=== PATIENT | female | born 1970 | race Caucasian/White ===

== ENCOUNTER → 2018-05-31 | Outpatient (CLI) | payer OTHER | LOC: M RAD 14:22 | DX: Z12.31 Encounter for screening mammogram for malignant neoplasm of breast (principal) | CPT/HCPCS: 77067 ==

== ENCOUNTER → 2018-07-05 | Outpatient (REF) | payer OTHER | LOC: M SFHCLERA 12:27 | DX: R30.0 Dysuria (principal) | CPT/HCPCS: 87186 ==

== ENCOUNTER → 2018-10-07 | Outpatient (REF) | payer OTHER | LOC: M SFHCLERA 17:40 | PROVIDERS: ATTEND Nurse Practitioner Family | DX: J02.9 Acute pharyngitis, unspecified (principal) ==

== ENCOUNTER → 2019-01-09 | Outpatient (REF) | payer OTHER ==
[2019-01-09 15:46] LABS: INR 0.94; PROTHROMBIN TIME 12.7 SECONDS (12.1-14.4)
[2019-01-09 15:47] LABS: PARTIAL THROMBOPLASTIN TIME 25.2 SECONDS (25.4-37.6)
== END ==
LOC: M LABDRAW1 14:48
PROVIDERS: ATTEND Physical Medicine & Rehabilitation
DX: Z01.818 Encounter for other preprocedural examination (principal)

== ENCOUNTER 2019-04-19 10:49 | Emergency (ER) | payer OTHER ==
[~2019-04-19] VITALS: Ht 160 cm; Wt 120.5 kg
[2019-04-19] MEDS ORDERED: CYMB1CAP5 PO (11:58)
[2019-04-19] MEDS ORDERED: [UNRECOGNIZED DRUG - CODE] XX (11:58)
[2019-04-19] MEDS ORDERED: AIMO70IN2 SQ (11:58)
[2019-04-19] MEDS ORDERED: TRAZ1TAB10 PO (11:58)
[2019-04-19] MEDS ORDERED: ZONI100C17 PO (11:58)
[2019-04-19] MEDS ORDERED: LOSA100T8 PO (11:58)
[2019-04-19] MEDS ORDERED: TIZA2TAB4 PO (11:58)
[2019-04-19] MEDS ORDERED: LIPI20TA PO (11:58)
[2019-04-19] MEDS ORDERED: SING10TA32 PO (11:58)
[2019-04-19] MEDS ORDERED: PROTPAK PO (11:58)
[2019-04-19] MEDS ORDERED: PROV100T25 PO (11:58)
[2019-04-19] MEDS ORDERED: LEXA1TAB2 PO (11:58)
[2019-04-19] MEDS ORDERED: MYRB50TA PO (11:58)
[2019-04-19] MEDS ORDERED: SYNT25TA PO (11:58)
[2019-04-19] MEDS ORDERED: OMEG10002 PO (11:58)
[2019-04-19] MEDS ORDERED: MAGN400C PO (11:58)
[2019-04-19] MEDS ORDERED: CLON0.5T17 PO (11:58)
[2019-04-19] MEDS ORDERED: METF500T13 PO (11:58)
[2019-04-19] MEDS ORDERED: CETI10CA13 PO (11:58)
[2019-04-19] MEDS ORDERED: CELE1CAP4 PO (11:58)
[2019-04-19] MEDS ORDERED: KETOROLAC 30 MG/ML VIAL (J1885) IV ONE (12:00)
[2019-04-19] MEDS ORDERED: KETOROLAC 30 MG/ML VIAL (J1885) As Ordered ONE (12:08)
[2019-04-19] MEDS ORDERED: LORazepam 2 MG/ML VIAL (J2060) IV STA (12:39)
--- NOTE | 2019-04-19 12:46 | REP ---
CT of the cervical spine without contrast Indication: Trauma. Comparison: None Technique: Axial CT of the cervical spine was performed without contrast. Bone reformatted images were provided in the axial, coronal and sagittal planes. Findings: There is no acute fracture or subluxation of the cervical spine. The craniocervical junction is intact. There is a cervical spondylosis, most notably at C5-C6 and C6-C7 with disc osteophyte complex formation. Vertebral body heights are maintained. The CT appearance of the spinal canal is within normal limits. The paraspinal soft tissues are within normal limits. There is no apical pneumothorax. Impression: No acute fracture or subluxation of the cervical spine. Cervical spondylosis. Electronically Signed by Lopez Wing MD 04/19/2019 12:37 P
--- NOTE | 2019-04-19 14:30 | REP ---
LEFT WRIST, FOUR VIEWS: There is no evidence of an acute fracture, dislocation or intrinsic bone disease. IMPRESSION: No fracture or dislocation. Electronically Signed by Hai Avery MD 04/19/2019 02:42 P
--- NOTE | 2019-04-19 14:31 | REP ---
LEFT SHOULDER, THREE VIEWS: There is no evidence of an acute fracture, dislocation or intrinsic bone disease. IMPRESSION: No fracture or dislocation. Electronically Signed by Hai Avery MD 04/19/2019 02:42 P
--- NOTE | 2019-04-19 14:32 | REP ---
PELVIS AND LEFT HIP: AP view of the pelvis and AP and frogleg views of the left hip are performed. There is no evidence of acute fracture, dislocation, or intrinsic bone disease. Metallic screws and rods are seen in the lower lumbar spine fusing L4 and L5. IMPRESSION: No acute fracture or dislocation. Electronically Signed by Hai Avery MD 04/19/2019 02:42 P
[2019-04-19 15:21] VITALS: BP 131/72
== END 2019-04-19 15:23 | disposition home or self-care (01) ==
LOC: EDBD 10:49 → M ED 10:49
DX: S40.012A Contusion of left shoulder, initial encounter (principal); S70.02XA Contusion of left hip, initial encounter; V53.5XXA Driver of pick-up truck or van injured in collision with car, pick-up truck or van in traffic accident, initial encounter; Y92.410 Unspecified street and highway as the place of occurrence of the external cause; M43.26 Fusion of spine, lumbar region; M47.812 Spondylosis without myelopathy or radiculopathy, cervical region; E03.9 Hypothyroidism, unspecified; K21.9 Gastro-esophageal reflux disease without esophagitis; Z79.84 Long term (current) use of oral hypoglycemic drugs; Z79.899 Other long term (current) drug therapy
CPT/HCPCS: 72125; 73030; 73110; 73502; 96374; 99284; J1885; J2060

== ENCOUNTER → 2019-08-31 | Outpatient (CLI) | payer OTHER ==
[~2019-08-31] MED LIST: AIMO70IN2 SQ; CELE1CAP4 PO; CETI10CA13 PO; CLON0.5T17 PO; CYMB1CAP5 PO; LEXA1TAB2 PO; LIPI20TA PO; LOSA100T8 PO; MAGN400C PO; METF500T13 PO; MYRB50TA PO; OMEG10002 PO; PROTPAK PO; PROV100T25 PO; SING10TA32 PO; SYNT25TA PO; TIZA2TAB4 PO; TRAZ1TAB10 PO; ZONI100C17 PO; [UNRECOGNIZED DRUG - CODE] XX
--- NOTE | 2019-08-31 16:27 | REPMRS ---
Patient History The patient states she had a clinical breast exam in February 2019. Family history of unknown cancer in father, unknown cancer in maternal grandmother. Taking unspecified hormones for 7 years. Digital Mammo Screening Bilat: August 31, 2019 - Exam #: [id number] Bilateral CC and MLO view(s) were taken. Technologist: Bruna Lindsey, Technologist Prior study comparison: May 31, 2018, bilateral digital mammo screening bilat performed at [facility]. January 06, 2016, bilateral digital woman screen mammo, performed at [facility]. FINDINGS: There are scattered fibroglandular densities. There is a needle biopsy marker clip again noted in the right breast. There has been no change in the appearance of the mammogram from the prior studies. There is a mild amount of scattered fibroglandular density which is fairly symmetric. There is no interval development of dominant mass, architectural distortion, or grouped microcalcification suggestive of malignancy. Assessment: BI-RADS/ACR category 2 mammogram. Benign Findings. Recommendation Routine screening mammogram of both breasts in 1 year (for women over age 40). This patient's Lifetime Breast Cancer Risk is estimated at 9.6 %. This mammogram was interpreted with the aid of an FDA-approved computer-aided dectection system. Electronically Signed By: Kin Pruitt MD 08/31/19 [id number]
== END ==
LOC: M RAD 13:14
PROVIDERS: ATTEND Family Medicine
DX: Z12.31 Encounter for screening mammogram for malignant neoplasm of breast (principal); Z80.8 Family history of malignant neoplasm of other organs or systems; Z92.29 Personal history of other drug therapy

== ENCOUNTER 2020-05-13 01:14 | Emergency (ER) | payer OTHER ==
[~2020-05-13] VITALS: Ht 160 cm; Wt 113.6 kg
[~2020-05-13 01:14] MED LIST changes: -TIZA2TAB4 PO; +TIZA2TAB6 PO
--- NOTE | 2020-05-13 03:45 | REPVR ---
PROCEDURE INFORMATION: Exam: CT Head Without Contrast Exam date and time: 05/13/2020 3:06 AM Age: 49 years old Clinical indication: Pain; Headache TECHNIQUE: Imaging protocol: Computed tomography of the head without contrast. Radiation optimization: All CT scans at this facility use at least one of these dose optimization techniques: automated exposure control; mA and/or kV adjustment per patient size (includes targeted exams where dose is matched to clinical indication); or iterative reconstruction. COMPARISON: No relevant prior studies available. FINDINGS: Brain: Normal. No hemorrhage. Unremarkable white matter. No mass effect. Cerebral ventricles: No ventriculomegaly. Bones/joints: Unremarkable. No acute fracture. Paranasal sinuses: Visualized sinuses are unremarkable. No fluid levels. Mastoid air cells: Visualized mastoid air cells are well aerated. Soft tissues: Unremarkable. IMPRESSION: No acute intracranial abnormality. Electronically signed by: Romulo Daniels On 05/13/2020 03:44:49 AM
[2020-05-13] MEDS ORDERED: METOCLOPRAMIDE INJ 10MG/2ML VIAL (J2765 PER 1) IV ONE ×2 (04:45→07:00)
[2020-05-13] MEDS ORDERED: NS 1,000 ML IV ONE (04:45)
[2020-05-13] MEDS ORDERED: diphenhydrAMINE 50MG/ML VIAL (J1200) IV ONE ×2 (04:45→07:00)
[2020-05-13] MEDS ORDERED: KETOROLAC 30 MG/ML 1ML VIAL IV ONE (04:45)
[2020-05-13] MEDS ORDERED: MAG SULF 1GM/100ML (MAG RUN) 1 GM in IV 1 EA IV ONE (07:00)
[2020-05-13 09:01] VITALS: BP 119/56
== END 2020-05-13 09:20 | disposition home or self-care (01) ==
LOC: M ED 01:14
DX: G43.909 Migraine, unspecified, not intractable, without status migrainosus (principal); Z79.84 Long term (current) use of oral hypoglycemic drugs; Z79.899 Other long term (current) drug therapy
CPT/HCPCS: 70450; 96361; 96365; 96375; 99285; J1200; J1885; J2765; J3475

== ENCOUNTER 2020-05-30 12:45 | Emergency (ER) | payer OTHER ==
[~2020-05-30] VITALS: Ht 165.1 cm; Wt 113.6 kg
[2020-05-30] MEDS ORDERED: NS 1,000 ML IV ONE (13:30)
[2020-05-30] MEDS ORDERED: MORPHINE 4 MG/ML 1ML VIAL/SYRINGE (J2270) IV ONE (13:30)
[2020-05-30 13:56] LABS: BASO % 0.3 % (0.0-1.0); EOS # 0.2 10^3/uL (0.0-0.5); EOS % 3.5 % (0.0-3.0); HEMATOCRIT 37.7 % (36.0-47.0); HEMOGLOBIN 12.4 g/dl (12.0-15.5); LYMPH # 2.5 10^3/uL (1.5-5.0); MEAN CORPUSCULAR HEMOGLOBIN 30.4 pg (27.0-33.0); MEAN CORPUSCULAR HGB CONC 32.9 g/dl (32.0-36.5); MEAN CORPUSCULAR VOLUME 92.4 fl (80.0-96.0); MONO # 0.4 10^3/uL (0.0-0.8); MONO % 6.6 % (0.0-5.0); NEUTROPHILS # 2.8 10^3/uL (1.5-8.5); NEUTROPHILS % 47.3 % (36.0-66.0); PLATELET COUNT, AUTOMATED 211 10^3/uL (150-450); RED BLOOD COUNT 4.08 10^6/uL (4.00-5.40); WHITE BLOOD COUNT 5.9 10^3/uL (4.0-10.0)
[2020-05-30 14:12] LABS: INR 0.91; PROTHROMBIN TIME 12.4 SECONDS (12.5-14.3)
[2020-05-30 14:13] LABS: PARTIAL THROMBOPLASTIN TIME 27.5 SECONDS (24.2-38.5)
[2020-05-30 14:25] LABS: HCG, SERUM QUALITATIVE NEGATIVE (NEGATIVE)
[2020-05-30] MEDS ORDERED: HYDROMORPHONE HCL 0.5 MG/ 0.5 ML SYRINGE (J1170 PER 1) IV ONE (14:30)
[2020-05-30 14:32] LABS: ALBUMIN 3.5 GM/DL (3.2-5.2); ALT/SGPT 67 U/L (12-78); BILIRUBIN,DIRECT 0.2 MG/DL (0.0-0.2); BILIRUBIN,TOTAL 0.5 MG/DL (0.2-1.0); BLOOD UREA NITROGEN 12 MG/DL (7-18); CALCIUM LEVEL 8.9 MG/DL (8.5-10.1); CARBON DIOXIDE LEVEL 29 MEQ/L (21-32); CHLORIDE LEVEL 105 MEQ/L (98-107); CK-MB VALUE MASS 1.8 NG/ML (<3.6); CPK CREATINE PHOSPHOKINASE 191 U/L (26-192); CREATININE FOR GFR 0.91 MG/DL (0.55-1.30); FREE T4 1.16 NG/DL (0.76-1.46); GLOMERULAR FILTRATION RATE > 60.0 (>51); GLUCOSE, FASTING 103 MG/DL (70-100); MB/CK RELATIVE INDEX 0.94 (< OR =4); POTASSIUM SERUM 3.6 MEQ/L (3.5-5.1); SODIUM LEVEL 141 MEQ/L (136-145); TROPONIN I < 0.02 NG/ML (< 0.10)
[2020-05-30] MEDS ORDERED: ISOVUE-370 76% 100ML VIAL As Ordered ONE (14:39)
--- NOTE | 2020-05-30 16:54 | REP ---
INDICATION: trauma. COMPARISON: 05/13/2020. TECHNIQUE: CT BRAIN PERFORMED IN THE AXIAL PLANE. CORONAL RECONSTRUCTION IMAGES ARE PERFORMED. FINDINGS: THE VENTRICLES ARE NORMAL IN SIZE AND POSITION. THERE IS NO MIDLINE SHIFT OR MASS EFFECT. AVERY-WHITE DIFFERENTIATION IS WELL MAINTAINED. THERE IS NO ACUTE INTRACRANIAL HEMORRHAGE OR EXTRA-AXIAL FLUID COLLECTION. BONE WINDOW EXAMINATION IS UNREMARKABLE. VISUALIZED MASTOID AIR CELLS AND PARANASAL SINUSES ARE CLEAR. There is a 1.2 cm cyst or polyp in the floor of the right maxillary sinus, which is partially visualized. IMPRESSION: NEGATIVE NONCONTRAST CT BRAIN. <Electronically signed by Hai Avery > 05/30/20 [id number]
--- NOTE | 2020-05-30 16:57 | REP ---
INDICATION: trauma. COMPARISON: 05/13/2020 TECHNIQUE: CT cervical spine performed in the axial plane, with sagittal and coronal reconstruction images performed. FINDINGS: There is no acute compression fracture or malalignment. There is no prevertebral soft tissue swelling. There is mild spurring and disc space narrowing at the C5-6 and C6-7 levels.. There is normal cervical lordosis. There is no abnormal density in the spinal canal. IMPRESSION: No evidence of acute fracture or dislocation. <Electronically signed by Hai Avery > 05/30/20 [id number]
--- NOTE | 2020-05-30 16:59 | REP ---
INDICATION: trauma. COMPARISON: None. TECHNIQUE: Axial noncontrast images through the thoracic spine with coronal and sagittal reformations. This CT examination was performed using the following dose reduction techniques: Automated exposure control, adjustment of mA and/or kv according to the patient's size, and use of iterative reconstruction technique. FINDINGS: Alignment and kyphosis maintained. Vertebral bodies are intact and demonstrate minimal generalized age-related changes. Disc spaces are within normal limits for age. Posterior elements and spinous processes are intact. There is no evidence for acute fracture/compression injury or subluxation. Spinal canal is patent. Paravertebral soft tissues are normal. IMPRESSION: Generalized age-related changes. No evidence for acute thoracic spine trauma/injury. <Electronically signed by Placido Osei > 05/30/20 [id number]
[2020-05-30 17:00] VITALS: BP 130/64
--- NOTE | 2020-05-30 17:01 | REP ---
INDICATION: trauma COMPARISON: None TECHNIQUE: Axial contrast enhanced images from the thoracic inlet to the upper abdomen with coronal and sagittal reformations using 75 ml Isovue 370 intravenous contrast material. This CT examination was performed using the following dose reduction techniques: Automated exposure control, adjustment of mA and/or kv according to the patient's size, and use of iterative reconstruction technique. FINDINGS: Bilateral lung laboy are well aerated and clear. No consolidation/contusion, pleural effusion, or pneumothorax. Tracheobronchial tree is patent. No axillary, hilar, or mediastinal adenopathy. Mediastinum demonstrates normal thoracic aorta, pulmonary vasculature, and heart/pericardium without evidence for mediastinal trauma. Surrounding musculoskeletal structures appear intact and without evidence for acute injury. IMPRESSION: Normal contrast-enhanced chest CT. No acute mediastinal or pleuroparenchymal process. No evidence for acute trauma/injury. <Electronically signed by Placido Osei > 05/30/20 [id number]
--- NOTE | 2020-05-30 17:05 | REP ---
INDICATION: trauma. COMPARISON: None TECHNIQUE: Axial contrast-enhanced images from the lung bases to the pubic symphysis using 100 cc Isovue 370 intravenous contrast material. Coronal and sagittal reformations obtained. This CT examination was performed using the following dose reduction techniques: Automated exposure control, adjustment of mA and/or kv according to the patient's size, and the use of iterative reconstruction technique. FINDINGS: Fatty infiltration to the liver noted. Spleen, pancreas, bilateral adrenal glands and kidneys are normal. There is no evidence for solid organ injury. Prior cholecystectomy. The enteric system including stomach, small, and large bowel appears normal. No evidence for obstruction or acute inflammatory process. Normal terminal ileum and appendix are identified in the right lower quadrant. Pelvis demonstrates normal bladder and evidence for prior hysterectomy with 9 cm right adnexal cyst. No ascites. No free air. No intraperitoneal or retroperitoneal adenopathy. Abdominal aorta and vasculature appear normal. Musculoskeletal structures are intact and without acute injury. There is evidence for prior lumbar fixation and laminectomy. IMPRESSION: No acute abdominopelvic trauma/injury. Prior hysterectomy with 9 cm right adnexal cyst. Prior cholecystectomy and lumbar fixation/laminectomy. No ascites. No free air. No adenopathy. No focal inflammatory stranding. <Electronically signed by Placido Osei > 05/30/20 [id number]
--- NOTE | 2020-05-30 17:09 | REP ---
INDICATION: trauma. COMPARISON: None. TECHNIQUE: Axial noncontrast images through the mid to distal pelvis with coronal and sagittal reformations through the right and left hip. This CT examination was performed using the following dose reduction techniques: Automated exposure control, adjustment of mA and/or kv according to the patient's size, and use of iterative reconstruction technique. FINDINGS: Osseous structures are intact and essentially symmetric. There is no evidence for visualized pelvic or be hip fracture. Visualized pelvic structures are grossly unremarkable. Evidence for prior hysterectomy noted. IMPRESSION: No evidence for hip fracture or trauma to the the visualized pelvis. <Electronically signed by Placido Osei > 05/30/20 [id number]
--- NOTE | 2020-05-30 17:10 | REP ---
INDICATION: trauma. COMPARISON: None. TECHNIQUE: Axial noncontrast images of the lumbosacral spine from mid T12 through mid sacrum with coronal and sagittal reformations. This CT examination was performed using the following dose reduction techniques: Automated exposure control, adjustment of mA and/or kv according to the patient's size, and use of iterative reconstruction technique. FINDINGS: Alignment and lordosis maintained. Evidence for prior fixation and laminectomy at the and L5 levels. Vertebral bodies are otherwise intact. Posterior elements and spinous processes are otherwise intact. There is no evidence for acute fracture/compression injury or subluxation. The spinal canal is patent. The paravertebral soft tissues are normal. IMPRESSION: Prior laminectomy and fixation at L4 and L5. No evidence for acute fracture/compression injury or subluxation. <Electronically signed by Placido Osei > 05/30/20 [id number]
--- NOTE | 2020-05-30 17:53 | REP ---
INDICATION: trauma COMPARISON: None. TECHNIQUE: AP and cross-table lateral views of the right and left knee. FINDINGS: Symmetric age-related changes are noted. No acute fracture or dislocation. Mild prepatellar swelling cannot be excluded. IMPRESSION: No obvious acute fracture or dislocation. <Electronically signed by Placido Osei > 05/30/20 [id number]
--- NOTE | 2020-05-30 20:35 | ECGEPIP ---
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
== END 2020-05-30 19:49 | disposition home or self-care (01) ==
LOC: M ED 12:45 → EDBD 12:45 → M ED 19:49
DX: S16.1XXA Strain of muscle, fascia and tendon at neck level, initial encounter (principal); S30.0XXA Contusion of lower back and pelvis, initial encounter; S70.01XA Contusion of right hip, initial encounter; S80.01XA Contusion of right knee, initial encounter; S80.02XA Contusion of left knee, initial encounter; W10.8XXA Fall (on) (from) other stairs and steps, initial encounter; Y92.9 Unspecified place or not applicable; Y93.9 Activity, unspecified; Y99.9 Unspecified external cause status; U07.1 COVID-19; R73.03 Prediabetes; M79.7 Fibromyalgia; E03.9 Hypothyroidism, unspecified; F43.10 Post-traumatic stress disorder, unspecified; Z79.899 Other long term (current) drug therapy; Z79.84 Long term (current) use of oral hypoglycemic drugs; Z98.890 Other specified postprocedural states
CPT/HCPCS: 70450; 71260; 72125; 72128; 72131; 73560; 73700; 74177; 80048; 80076; 82550; 82553; 84439; 84443; 84484; 84703; 85025; 85610; 85730; 93005; 93041; 94760; 96361; 96374; 96375; 99285; J1170; J2270; Q9967

== ENCOUNTER 2020-08-26 09:11 | Inpatient (IN) | payer OTHER ==
[~2020-08-26] VITALS: Ht 160 cm; Wt 118.2 kg
[~2020-08-26 09:11] MED LIST changes: +TIZA1TAB12 PO; -TIZA2TAB6 PO
--- OUTSIDE RECORDS SUMMARY | 2020-08-26 09:23 | CCD | Continuity of Care Document ---
Author Author Leda SCOTT M.D. 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 Onset: 06/05/2018 Chronic tension-type headache Cecilia Chairez M.D. Onset: Neck pain Cecilia Chairez M.D. Onset: 06/05/2018 Cervico-occipital neuralgia Cecilia Chairez M.D. Onset: 06/05 Benign intracranial hypertension Cecilia Chairez M.D. Onset: 06/05/2018 Nonpyogenic thrombosis of intracranial venous sinus Cecilia henry M.D. Onset: 06/05/2018 Visual disturbance Cecilia Chairez M.D. Onset: 06/05/2018 Low back pain Cecilia Chairez M.D. Onset: 08/15/2018 Spondylolysis of cervical spine Cecilia Chairez M.D. Onset: 0 08/15/2018 Spondylolysis Cecilia Chairez M.D. Onset: 08/15/2018 Bilateral carpal tunnel syndrome Cecilia Chairez M.D. Onset: 10/13/2018 Lesion of ulnar nerve Cecilia Chairez M.D. Onset: 10/13/2018 Chronic intractable migraine without aura Lilia Syed Onset: 05/15/2020 Cervico-occipital neuralgia Corie Aden P.A.-C. Onset: 05/15/2020 Fibromyalgia Corie Aden P.A.-C. Onset: 05/15/20 20 Neck pain Corie Aden P.A.-C. Onset: 05/15/20 20 Low back pain Corie Aden P.A.-C. Onset: 05/15/20 20 Visual disturbance Corie Aden P.A.-C. Onset: 05/15/20 20 Obstructive sleep apnea syndrome Corie Aden P.A.-C. On set: 05/15/2020 Social History Type Date Description Comments Sex Unknown Tobacco Use Start: Unknown Patient has never smoked Allergies, Adverse Reactions, Alerts Active Allergies Reaction Severity Comments Date Topamax severe paresthesias 03/09/20 19 Tizanidine dry mouth 11/28/2019 Inactive Allergies NKDA 06/05/2018 Medications Active Medications SIG Qnty Indications Ordering Provide r Date Pregabalin 100mg Capsules 1 by mouth three times a day 90pelon Chairez M.D. 05/29/2020 Methocarbamol 750mg Tablets 1 po tid G43.719 Jett Scott M.D. 05/14/2020 Relpax 40mg Tablets 1 by mouth as needed migraine, may repeat once in 2 hours 9tagary Chairez M.D. 05/08/2020 Medrol 4mg Tablets take 6 pills for one day, and then reduce by one pill each day till completed. 21tagary Chairez M.D. 11/20/2019 Aimovig 140mg/ml Solution Auto-Inj ect 1 inject 140mg/ml sc once a month 3ml Cecilia Chairez M.D. 01/16/2019 Zonisamide 100mg Capsules 3 by mouth qhs. 90pelon Chairez M.D. 07/06/2018 Abilify 2mg Tablets 1 by mouth every night at bedtime Lorena Dwyer M.D. Klonopin 1mg Tablets 1 by mouth twice a day mdd 2 Cecilia Chairez M.D. History Medications Pregabalin 50mg Capsules 1 po bid 60pelon Chairez M.D. 05/08/2020 - 05/29/2020 Alprazolam 0.25mg Tablets 1 by mouth half an hour before the MRI, may repeat once as needed 2tagary Chairez M.D. 05/08/2020 - 05/14/2020 Gabapentin 300mg Capsules 1 by mouth tid. 90Valentina Hobbs.D. 03/14/2020 - 020 Immunizations Description No Information Available Vital Signs Date Vital Result Comment 05/14/2020 5:44am BP Systolic 130 mmHg BP Diastolic 100 mmHg Heart Rate 68 /min Respiratory Rate 20 /min 10/25/2019 6:31am BP Systolic 110 mmHg BP Diastolic 80 mmHg Heart Rate 76 /min Respiratory Rate 16 /min Results Description No Information Available Procedures Date Code Description Status 07/15/2020 82858 Injection For Nerve Block, Other Peripheral Nerve Or Branch Completed 07/15/2020 35817 Injection For Nerve Block, Great er Occipital Nerve Completed 07/15/2020 60713 Inj, Anesth Agent, Trigeminal Co mpleted 05/10/2020 55146 MRI Brain W/O Contrast Completed 05/10/2020 88818 MRI Brain W/O Contrast Completed 04/28/2020 73987 Injection For Nerve Block, Other Peripheral Nerve Or Branch Completed 04/28/2020 06544 Injection For Nerve Block, Great er Occipital Nerve Completed 04/28/2020 99079 Inj, Anesth Agent, Trigeminal Co mpleted 03/24/2020 63907 Injection For Nerve Block, Other Peripheral Nerve Or Branch Completed 03/24/2020 92643 Injection For Nerve Block, Great er Occipital Nerve Completed 03/24/2020 35524 Inj, Anesth Agent, Trigeminal Co mpleted 01/30/2020 16935 Injection For Nerve Block, Other Peripheral Nerve Or Branch Completed 01/30/2020 62436 Injection For Nerve Block, Great er Occipital Nerve Completed 01/30/2020 64580 Inj, Anesth Agent, Trigeminal Co mpleted Medical Devices Description No Information Available Encounters Type Date Location Provider Dx Diagnosis Office Visit 06/18/2020 8:00a [facility] [place] Corie cohn, P.A.-C. M79.7 Fibromyalgia M54.81 Occipital neuralgia G43.719 Chronic migraine w/o aura, i ntractable, w/o stat migr H53.8 Other visual disturbances M54.2 Cervicalgia M54.5 Low back pain G60.9 Hereditary and idiopathic ne uropathy, unspecified G47.33 Obstructive sleep apnea (teressa lt) (pediatric) Office Visit 05/14/2020 2:00p Main office - [place] Corie cohn P.A.-C. G43.719 Chronic migraine w/o aura, intractable, w/o stat migr M54.81 Occipital neuralgia M79.7 Fibromyalgia M54.2 Cervicalgia M54.5 Low back pain G47.33 Obstructive sleep apnea (teressa lt) (pediatric) G60.9 Hereditary and idiopathic ne uropathy, unspecified H53.8 Other visual disturbances Office Visit 01/28/2020 11:15a Main office - [place] Ruel UriasA.-CJennifer M79.7 Fibromyalgia M54.5 Low back pain G60.9 Hereditary and idiopathic ne uropathy, unspecified M54.2 Cervicalgia G56.03 Carpal tunnel syndrome, bila teral upper limbs G56.22 Lesion of ulnar nerve, left upper limb G43.719 Chronic migraine w/o aura, i ntractable, w/o stat migr M54.81 Occipital neuralgia G47.33 Obstructive sleep apnea (teressa lt) (pediatric) Assessments Date Code Description Provider 07/15/2020 M54.81 Occipital neuralgia Jett murry M.D. 07/15/2020 G50.0 Trigeminal neuralgia Jett garcia M.D. 06/18/2020 M79.7 Fibromyalgia Lilia Syed.A.-C. 06/18/2020 M54.81 Occipital neuralgia Lilia Urias.A.-C. 06/18/2020 G43.719 Chronic migraine wit hout aura, intractable, without status migrainosus Lilia Syed.A.-C. 06/18/2020 H53.8 Other visual disturbances Lilia Burnham.A.-C. 06/18/2020 M54.2 Cervicalgia Corie Aden P.A.-C. 06/18/2020 M54.5 Low back pain Corie Aden P.A.-C. 06/18/2020 G60.9 Hereditary and idiopathic neurop athy, unspecified Corie Aden P.A.-C. 06/18/2020 G47.33 Obstructive sleep apnea (adult) (pediatric) Lilia Syed.A.-C. 05/14/2020 G43.719 Chronic migraine wit hout aura, intractable, without status migrainosus Lilia Syed.A.-C. 05/14/2020 M54.81 Occipital neuralgia Lilia Urias.A.-C. 05/14/2020 M79.7 Fibromyalgia Corie Aden P.A.-C. 05/14/2020 M54.2 Cervicalgia Corie Aden P.A.-C. 05/14/2020 M54.5 Low back pain Corie Aden, P.A.-C. 05/14/2020 G47.33 Obstructive sleep apnea (adult) (pediatric) Lilia Syed.A.-C. 05/14/2020 G60.9 Hereditary and idiopathic neurop athy, unspecified Corie Aden P.A.-C. 05/14/2020 H53.8 Other visual disturbances Lilia Burnham.A.-C. 05/10/2020 H53.8 Other visual disturbances Lorena Dwyer M.D. 05/10/2020 H53.8 Other visual disturbances MRI 05/10/2020 R51.9 Headache, unspecified Lorena Latdank castro MJenniferD. 05/10/2020 R51.9 Headache, unspecified MRI 05/01/2020 G43.719 Chronic migraine without aura, i ntractable, without status m Lilia Syed.A.-C. 05/01/2020 M54.81 Occipital neuralgia Lilia Urias.A.-C. 05/01/2020 M54.2 Cervicalgia Corie Aden P.A.-C. 05/01/2020 M79.7 Fibromyalgia Corie Aden P.A.-C. 05/01/2020 M54.5 Low back pain Corie Aden P.A.-C. 05/01/2020 G60.9 Hereditary and idiopathic neurop athy, unspecified Croie Aden P.A.-C. 05/01/2020 G56.03 Carpal tunnel syndrome, bilatera l upper limbs Corie Aden P.A.-C. 05/01/2020 G56.22 Lesion of ulnar nerve, left uppe r limb Lilia Syed.A.-C. 04/28/2020 M54.81 Occipital neuralgia Jett Ivette murry M.D. 04/28/2020 G50.0 Trigeminal neuralgia Jett Jimenezevelia garcia M.D. 03/24/2020 M54.81 Occipital neuralgia Jett Jimeneztravis murry M.D. 03/24/2020 G50.0 Trigeminal neuralgia Jett Jimenezevelia garcia M.D. 01/30/2020 M54.81 Occipital neuralgia Jett Garciamarc murry M.D. 01/30/2020 G50.0 Trigeminal neuralgia Jett Jimenezevelia garcia M.D. 01/28/2020 M79.7 Fibromyalgia Lilia Syed.A.-C. 01/28/2020 M54.5 Low back pain Ruel SyedA.-C. 01/28/2020 G60.9 Hereditary and idiopathic neurop athy, unspecified Lilia Syed.A.-C. 01/28/2020 M54.2 Cervicalgia Lilia Syed.A.-C. 01/28/2020 G56.03 Carpal tunnel syndrome, bilatera l upper limbs Lilia Syed.A.-C. 01/28/2020 G56.22 Lesion of ulnar nerve, left uppe r limb Lilia Syed.A.-C. 01/28/2020 G43.719 Chronic migraine without aura, i ntractable, without status m Lilia Syed.A.-C. 01/28/2020 M54.81 Occipital neuralgia Corie cohn P.A.-C. 01/28/2020 G47.33 Obstructive sleep apnea (adult) (pediatric) Agnieszka SyedCJennifer Plan of Treatment Future Appointment(s):* 09/02/2020 3:15 pm - Jett Scott M.D. at Main office [facility] * 08/25/2020 9:30 am - Corie Aden P.A.-C. at [facility] 06/18/2020 - Corie Aden P.A.-C.* M79.7 Fibromyalgia* Comments:* Improved. Continue current medications. * M54.81 Occipital neuralgia* Comments:* She will have her next set of injections in July. Recent injections were cancelled due to a positive COVID test. * G43.719 Chronic migraine without aura, intractable, without status migrainosus * Comments:* Improved. Continue current medications. * H53.8 Other visual disturbances* Comments:* She is awaiting an appt with ophthalmology. * M54.2 Cervicalgia* Comments:* Stable. Follow up with orthopedics. * M54.5 Low back pain* Comments:* Stable. * G60.9 Hereditary and idiopathic neuropathy, unspecified* Comments:* Continue Lyrica. * G47.33 Obstructive sleep apnea (adult) (pediatric)* Comments:* Follow up with PCP. * Follow up:* 2 months Functional Status Description No Information Available Mental Status Description No Information Available Referrals Refer to Reason for Referral Status Appt Date Lorena Dwyer M.D. Created [facility] [address] [place] [address] [phone] Jett Scott M.D. Created 0 [address] [place] [id number] [phone]
--- OUTSIDE RECORDS SUMMARY | 2020-08-26 09:23 | CCD | Continuity of Care Document ---
Author Author Leda ADEN P.A.-C. Organization Unknown Address [address] [place] [address] Phone [phone] Care Team Providers [facility] Director Name Role Phone [place] [employer] Unavailable Problems Active Problems Provider Date [...] 750mg Tablets 1 po tid G43.719 Jett Wilson M.D. 05/14/2020 Relpax 40mg Tablets 1 by mouth as needed migraine, may repeat once in 2 hours 9tanisha Chairez M.D. 05/08/2020 Medrol 4mg Tablets take [...] Gabapentin 300mg Capsules 1 by mouth tid. 90pelon Chairez M.D. 03/14/2020 - 020 Immunizations Description No Information Available Vital Signs Date Vital Result Comment 05/14/2020 5:44am BP Systolic 130 mmHg BP Diastolic 100 mmHg Heart Rate 68 /min Respiratory Rate 20 /min 10/25/2019 6:31am BP Systolic 110 mmHg BP Diastolic 80 mmHg Heart Rate 76 /min Respiratory Rate 16 /min Results Description No Information Available Procedures Date Code Description Status 05/10/2020 84747 MRI Brain W/O Contrast Completed 05/10/2020 51087 MRI Brain W/O Contrast Completed 04/28/2020 36462 Injection For Nerve Block, Other Peripheral Nerve Or Branch Completed 04/28/2020 13587 Injection For Nerve Block, Great er Occipital Nerve Completed 04/28/2020 39854 Inj, Anesth Agent, Trigeminal Co mpleted 03/24/2020 05074 Injection For Nerve Block, Other Peripheral Nerve Or Branch Completed 03/24/2020 46094 Injection For Nerve Block, Great er Occipital Nerve Completed 03/24/2020 67177 Inj, Anesth Agent, Trigeminal Co mpleted 01/30/2020 02147 Inj, Anesth Agent, Trigeminal Co mpleted 01/30/2020 66658 Injection For Nerve Block, Great er Occipital Nerve Completed 01/30/2020 37978 Injection For Nerve Block, Other Peripheral Nerve Or Branch Completed 12/26/2019 71466 Nerve Conduction 11-12 Studies C ompleted 12/26/2019 55354 Needle Electromyography Complete , Five Or More Muscles Studied Completed 12/26/2019 01556 Needle Electromyography Complete , Five Or More Muscles Studied Completed 12/24/2019 55457 Injection For Nerve Block, Other Peripheral Nerve Or Branch Completed 12/24/2019 01266 Injection For Nerve Block, Great er Occipital Nerve Completed 12/24/2019 69144 Inj, Anesth Agent, Trigeminal Co mpleted Medical Devices Description No Information Available Encounters Type Date Location Provider Dx Diagnosis Office Visit 05/14/2020 2:00p Main office - [place] Corie cohn PJenniferAJennifer-Carole G43.719 Chronic migraine w/o aura, intractable, w/o stat migr M54.81 Occipital neuralgia M79.7 Fibromyalgia M54.2 Cervicalgia M54.5 Low back pain G47.33 Obstructive sleep apnea (teressa lt) (pediatric) G60.9 Hereditary and idiopathic ne uropathy, unspecified H53.8 Other visual disturbances Office Visit 01/28/2020 11:15a Main office - [place] Lilia Urias.A.-C. M79.7 Fibromyalgia M54.5 Low back pain G60.9 Hereditary and idiopathic ne uropathy, unspecified M54.2 Cervicalgia G56.03 Carpal tunnel syndrome, bila teral upper limbs G56.22 Lesion of ulnar nerve, left upper limb G43.719 Chronic migraine w/o aura, i ntractable, w/o stat migr M54.81 Occipital neuralgia G47.33 Obstructive sleep apnea (teressa lt) (pediatric) Assessments Date Code Description Provider 06/18/2020 M79.7 Fibromyalgia Corie Aden P.A.-C. 06/18/2020 M54.81 Occipital neuralgia Lilia Urias.A.-C. 06/18/2020 G43.719 Chronic migraine wit hout aura, intractable, without status migrainosus Lilia Syed.A.-C. 06/18/2020 H53.8 Other visual disturbances Corie Aden P.A.-C. 06/18/2020 M54.2 Cervicalgia Corie Aden P.A.-C. 06/18/2020 M54.5 Low back pain Corie Aden P.A.-C. 06/18/2020 G60.9 Hereditary and idiopathic neurop athy, unspecified Corie Aden P.A.-C. 06/18/2020 G47.33 Obstructive sleep apnea (adult) (pediatric) Corie Aden P.A.-C. 05/14/2020 G43.719 Chronic migraine wit hout aura, intractable, without status migrainosus Corie Aden P.A.-C. 05/14/2020 M54.81 Occipital neuralgia Corie cohn P.A.-C. 05/14/2020 M79.7 Fibromyalgia Corie Aden P.A.-C. 05/14/2020 M54.2 Cervicalgia Corie Aden P.A.-C. 05/14/2020 M54.5 Low back pain Corie Aden P.A.-C. 05/14/2020 G47.33 Obstructive sleep apnea (adult) (pediatric) Corie Aden P.A.-C. 05/14/2020 G60.9 Hereditary and idiopathic neurop athy, unspecified Corie Aden P.A.-C. 05/14/2020 H53.8 Other visual disturbances Corie Aden P.A.-C. 05/10/2020 H53.8 Other visual disturbances Lorena Dwyer M.D. 05/10/2020 H53.8 Other visual disturbances MRI 05/10/2020 R51.9 Headache, unspecified Lorena Lati fKumarDJennifer 05/10/2020 R51.9 Headache, unspecified MRI 05/01/2020 G43.719 Chronic migraine without aura, i ntractable, without status m Lilia Syed.A.-C. 05/01/2020 M54.81 Occipital neuralgia Corie cohn P.A.-C. 05/01/2020 M54.2 Cervicalgia Corie Aden P.A.-C. 05/01/2020 M79.7 Fibromyalgia Corie Aden P.A.-C. 05/01/2020 M54.5 Low back pain Corie Aden P.A.-C. 05/01/2020 G60.9 Hereditary and idiopathic neurop athy, unspecified Corie Aden P.A.-C. 05/01/2020 G56.03 Carpal tunnel syndrome, bilatera l upper limbs Corie Aden P.A.-C. 05/01/2020 G56.22 Lesion of ulnar nerve, left uppe r limb Corie Aden P.A.-C. 04/28/2020 M54.81 Occipital neuralgia Jett murry M.D. 04/28/2020 G50.0 Trigeminal neuralgia Jett garcia M.D. 03/24/2020 M54.81 Occipital neuralgia Jett murry M.D. 03/24/2020 G50.0 Trigeminal neuralgia Jett garcia M.D. 01/30/2020 M54.81 Occipital neuralgia Jett murry M.D. 01/30/2020 G50.0 Trigeminal neuralgia Jett garcia M.D. 01/28/2020 M79.7 Fibromyalgia Corie Aden P.A.-C. 01/28/2020 M54.5 Low back pain Corie Aden P.A.-C. 01/28/2020 G60.9 Hereditary and idiopathic neurop athy, unspecified Corie Aden P.A.-C. 01/28/2020 M54.2 Cervicalgia Corie Aden P.A.-C. 01/28/2020 G56.03 Carpal tunnel syndrome, bilatera l upper limbs Corie Aden P.A.-C. 01/28/2020 G56.22 Lesion of ulnar nerve, left uppe r limb Corie Aden P.A.-C. 01/28/2020 G43.719 Chronic migraine without aura, i ntractable, without status m Corie Aden P.A.-C. 01/28/2020 M54.81 Occipital neuralgia Corie cohn P.A.-C. 01/28/2020 G47.33 Obstructive sleep apnea (adult) (pediatric) Corie Aden P.A.-C. 12/26/2019 M54.5 Low back pain Jett Wilson M.D. 12/26/2019 R20.2 Paresthesia of skin Jett murry M.D. 12/26/2019 G60.9 Hereditary and idiopathic neurop athy, unspecified Jett Wilson M.D. 12/24/2019 M54.81 Occipital neuralgia Jett murry M.D. 12/24/2019 G50.0 Trigeminal neuralgia Jett garcia M.D. Plan of Treatment Future Appointment(s):* 07/17/2020 12:45 pm - EEG at Main office - [place] * 07/15/2020 3:25 pm - Jett Wilson M.D. at [facility] 06/18/2020 - Corie Aden P.A.-C.* M79.7 Fibromyalgia * M54.81 Occipital neuralgia * G43.719 Chronic migraine without aura, intractable, without status migrainosus * H53.8 Other visual disturbances * M54.2 Cervicalgia * M54.5 Low back pain * G60.9 Hereditary and idiopathic neuropathy, unspecified * G47.33 Obstructive sleep apnea (adult) (pediatric) Functional Status Description No Information Available Mental Status Description No Information Available Referrals Refer to Reason for Referral Status Appt Date Lorena Dwyer M.D. Created [facility] [address] [place], [place] [id number] [phone] Jett Wilson M.D. Created [address] [place] [address] [phone] Jett Wilson M.D. Created [address] [place] [address] [phone]
--- OUTSIDE RECORDS SUMMARY | 2020-08-26 09:23 | CCD | Continuity of Care Document ---
Author Author Leda SCOTT M.D. Organization Unknown Address [address] [place], [place] [address] Phone [phone] Care Team Providers Care [employer] Engineer Name Role Phone [place] [employer] Unavailable Problems Active Problems Provider Date [...] Available Procedures Date Code Description Status 05/10/2020 57981 MRI Brain W/O Contrast Completed 05/10/2020 67380 MRI Brain W/O Contrast Completed 04/28/2020 27621 Injection For Nerve Block, Other Peripheral Nerve Or Branch Completed 04/28/2020 72307 Injection For Nerve Block, Great er Occipital Nerve Completed 04/28/2020 50972 Inj, Anesth Agent, Trigeminal Co mpleted 03/24/2020 37427 Injection For Nerve Block, Other Peripheral Nerve Or Branch Completed 03/24/2020 18575 Injection For Nerve Block, Great er Occipital Nerve Completed 03/24/2020 40357 Inj, Anesth Agent, Trigeminal Co mpleted 01/30/2020 14483 Injection For Nerve Block, Other Peripheral Nerve Or Branch Completed 01/30/2020 11346 Injection For Nerve Block, Great er Occipital Nerve Completed 01/30/2020 95999 Inj, Anesth Agent, Trigeminal Co mpleted Medical Devices Description No Information Available Encounters Type Date Location Provider Dx Diagnosis Office Visit 06/18/2020 8:00a Main office - [place] Corie cohn, P.A.-C. M79.7 Fibromyalgia M54.81 Occipital neuralgia G43.719 Chronic migraine w/o aura, i ntractable, w/o stat migr H53.8 Other visual disturbances M54.2 Cervicalgia M54.5 Low back pain G60.9 Hereditary and idiopathic ne uropathy, unspecified G47.33 Obstructive sleep apnea (teressa lt) (pediatric) Office Visit 05/14/2020 2:00p Main office - [place] Corie cohn P.A.-C. G43.719 Chronic migraine w/o aura, intractable, w/o stat migr M54.81 Occipital neuralgia M79.7 Fibromyalgia M54.2 Cervicalgia M54.5 Low back pain G47.33 Obstructive sleep apnea (teressa lt) (pediatric) G60.9 Hereditary and idiopathic ne uropathy, unspecified H53.8 Other visual disturbances Office Visit 01/28/2020 11:15a Main office - [place] Corie cohn P.A.-C. M79.7 Fibromyalgia M54.5 Low back pain G60.9 [...] Corie Aden P.A.-C. 06/18/2020 M54.81 Occipital neuralgia Corie cohn P.A.-C. 06/18/2020 G43.719 Chronic migraine wit hout aura, intractable, without status migrainosus Corie Aden P.A.-C. 06/18/2020 H53.8 Other visual disturbances Corie Aden P.A.-C. 06/18/2020 M54.2 Cervicalgia Corie Aden, P.A.-C. 06/18/2020 M54.5 Low back pain Corie Aden, P.A.-C. 06/18/2020 G60.9 Hereditary and idiopathic neurop athy, unspecified Corie Aden P.A.-C. 06/18/2020 G47.33 Obstructive sleep apnea (adult) (pediatric) Croie Aden P.A.-C. 05/14/2020 G43.719 Chronic migraine wit [...] Jett murry M.D. 03/24/2020 G50.0 Trigeminal neuralgia Harshaitz Murphy garcia M.D. 01/30/2020 M54.81 Occipital neuralgia Harshaitz Ivette murry M.D. 01/30/2020 G50.0 Trigeminal neuralgia Jett Murphy garcia M.D. 01/28/2020 M79.7 Fibromyalgia Ruel SyedAJennifer-C. 01/28/2020 M54.5 Low back pain Lilia Syed.A.-C. 01/28/2020 G60.9 Hereditary and idiopathic neurop athy, unspecified Corie Aden P.A.-C. 01/28/2020 M54.2 Cervicalgia Lilia Syed.A.-C. 01/28/2020 G56.03 Carpal tunnel syndrome, bilatera l upper limbs Lilia Syed.A.-C. 01/28/2020 G56.22 Lesion of ulnar nerve, left uppe r limb Lilia Syed.A.-C. 01/28/2020 G43.719 Chronic migraine without aura, i ntractable, without status m Lilia Syed.A.-C. 01/28/2020 M54.81 Occipital neuralgia Lilia Urias.A.-C. 01/28/2020 G47.33 Obstructive sleep apnea (adult) (pediatric) Jasen Syed-CJennifer Plan of Treatment Future Appointment(s):* 08/25/2020 9:30 am - Jasen Syed-C. at Main office [facility] 06/18/2020 - Jasen Syed-C.* M79.7 Fibromyalgia* Comments:* Improved. Continue current medications. [...] Status Appt Date Lorena Dwyer M.D. Created [facility] [address] [place] [address] [phone]
--- OUTSIDE RECORDS SUMMARY | 2020-08-26 09:24 | CCD ---
Author Author [facility] Organization [facility] Address Unknown Phone Unavailable Care Team Providers Care Junior Underwriter Name Role Phone Marlen Trujillo MD Unavailable Unavailable Marlen Trujillo MD Unavailable Unavailable Marlen Trujillo MD Unavailable Unavailable Marlen Trujillo MD Unavailable Unavailable Marlen Trujillo MD Unavailable Unavailable Marlen Trujillo MD Unavailable Unavailable Marlen Trujillo MD Unavailable Unavailable Marlen Trujillo MD Unavailable Unavailable Marlen Trujillo MD Unavailable Unavailable Marlen Trujillo MD Unavailable Unavailable Marlen Trujillo MD Unavailable Unavailable Marlen Trujillo MD Unavailable Unavailable Marlen Trujillo MD Unavailable Unavailable Marlen Trujillo MD Unavailable Unavailable Marlen Trujillo MD Unavailable Unavailable Marlen Trujillo MD Unavailable Unavailable Marlen Trujillo MD Unavailable Unavailable Marlen Trujillo MD Unavailable Unavailable Marlen Trujillo MD Unavailable Unavailable Marlen Trujillo MD Unavailable Unavailable Marlen Trujillo MD Unavailable Unavailable Marlen Trujillo MD Unavailable Unavailable Marlen Trujillo MD Unavailable Unavailable Marlen Trujillo MD Unavailable Unavailable Marlen Trujillo MD Unavailable Unavailable Marlen Trujillo MD Unavailable Unavailable Marlen Trujillo MD Unavailable Unavailable Marlen Trujillo MD Unavailable Unavailable Marlen Trujillo MD Unavailable Unavailable Marlen Trujillo MD Unavailable Unavailable Marlen Trujillo MD Unavailable Unavailable Marlen Trujillo MD Unavailable Unavailable Marlen Trujillo MD Unavailable Unavailable Marlen Trujillo MD Unavailable Unavailable Marlen Trujillo MD Unavailable Unavailable Marlen Trujillo MD Unavailable Unavailable Marlen Trujillo MD Unavailable Unavailable Marlen Trujillo MD Unavailable Unavailable Marlen Trujillo MD Unavailable Unavailable Marlen Trujillo MD Unavailable Unavailable Marlen Trujillo MD Unavailable Unavailable Marlen Trujillo MD Unavailable Unavailable Marlen Trujillo MD Unavailable Unavailable Marlen Trujillo MD Unavailable Unavailable Marlen Trujillo MD Unavailable Unavailable Marlen Trujillo MD Unavailable Unavailable Marlen Trujillo MD Unavailable Unavailable Trickey, J Corie PA Unavailable Unavailable Trickey, J Corie PA Unavailable Unavailable Trickey, J Corie PA Unavailable Unavailable Trickey, J Corie PA Unavailable Unavailable Trickey, J Corie PA Unavailable Unavailable Trickey, J Corie PA Unavailable Unavailable Trickey, J Corie PA Unavailable Unavailable Trickey, J Corie PA Unavailable Unavailable Trickey, J Corie PA Unavailable Unavailable Trickey, J Corie PA Unavailable Unavailable Trickey, J Corie PA Unavailable Unavailable Trickey, J Corie PA Unavailable Unavailable Trickey, J Corie PA Unavailable Unavailable Trickey, J Corie PA Unavailable Unavailable Trickey, J Corie PA Unavailable Unavailable Trickey, J Corie PA Unavailable Unavailable Trickey, J Corie PA Unavailable Unavailable Trickey, J Corie PA Unavailable Unavailable Trickey, J Corie PA Unavailable Unavailable Trickey, J Corie PA Unavailable Unavailable Trickey, J Corie PA Unavailable Unavailable Trickey, J Corie PA Unavailable Unavailable Trickey, J Corie PA Unavailable Unavailable Trickey, J Corie PA Unavailable Unavailable Trickey, J Corie PA Unavailable Unavailable Trickey, J Corie PA Unavailable Unavailable Trickey, J Corie PA Unavailable Unavailable Trickey, J Corie PA Unavailable Unavailable Trickey, J Corie PA Unavailable Unavailable Trickey, J Corie PA Unavailable Unavailable Trickey, J Corie PA Unavailable Unavailable Trickey, J Corie PA Unavailable Unavailable Trickey, J Corie PA Unavailable Unavailable Trickey, J Corie PA Unavailable Unavailable Trickey, J Corie PA Unavailable Unavailable Trickey, J Corie PA Unavailable Unavailable Trickey, J Corie PA Unavailable Unavailable Trickey, J Corie PA Unavailable Unavailable Trickey, J Corie PA Unavailable Unavailable Trickey, J Corie PA Unavailable Unavailable Trickey, J Corie PA Unavailable Unavailable Trickey, J Corie PA Unavailable Unavailable Trickey, J Corie PA Unavailable Unavailable Trickey, J Corie PA Unavailable Unavailable Trickey, J Corie PA Unavailable Unavailable Trickey, J Corie PA Unavailable Unavailable Trickey, J Corie PA Unavailable Unavailable Trickey, J Corie PA Unavailable Unavailable Trickey, J Corie PA Unavailable Unavailable Trickey, J Corie PA Unavailable Unavailable Trickey, J Ocrie PA Unavailable Unavailable Trickey, J Corie PA Unavailable Unavailable OBEN, T BRENDA MD Unavailable Unavailable OBEN, T BRENDA MD Unavailable Unavailable OBEN, T BRENDA MD Unavailable Unavailable OBEN, T BRENDA MD Unavailable Unavailable OBEN, T BRENDA MD Unavailable Unavailable OBEN, T BRENDA MD Unavailable Unavailable OBEN, T BRENDA MD Unavailable Unavailable OBEN, T BRENDA MD Unavailable Unavailable OBEN, T BRENDA MD Unavailable Unavailable OBEN, T BRENDA MD Unavailable Unavailable OBEN, T BRENDA MD Unavailable Unavailable OBEN, T BRENDA MD Unavailable Unavailable OBEN, T BRENDA MD Unavailable Unavailable OBEN, T BRENDA MD Unavailable Unavailable OBEN, T BRENDA MD Unavailable Unavailable OBEN, T BRENDA MD Unavailable Unavailable OBEN, T BRENDA MD Unavailable Unavailable OBEN, T BRENDA MD Unavailable Unavailable OBEN, T BRENDA MD Unavailable Unavailable OBEN, T BRENDA MD Unavailable Unavailable OBEN, T BRENDA MD Unavailable Unavailable OBEN, T BRENDA MD Unavailable Unavailable OBEN, T BRENDA MD Unavailable Unavailable OBEN, T BRENDA MD Unavailable Unavailable OBEN, T BRENDA MD Unavailable Unavailable OBEN, T BRENDA MD Unavailable Unavailable OBEN, T BRENDA MD Unavailable Unavailable OBEN, T BRENDA MD Unavailable Unavailable OBEN, T BRENDA MD Unavailable Unavailable OBEN, T BRENDA MD Unavailable Unavailable OBEN, T BRENDA MD Unavailable Unavailable OBEN, T BRENDA MD Unavailable Unavailable OBEN, T BRENDA MD Unavailable Unavailable OBEN, T BRENDA MD Unavailable Unavailable OBEN, T BRENDA MD Unavailable Unavailable OBEN, T BRENDA MD Unavailable Unavailable OBEN, T BRENDA MD Unavailable Unavailable OBEN, T BRENDA MD Unavailable Unavailable OBEN, T BRENDA MD Unavailable Unavailable OBEN, T BRENDA MD Unavailable Unavailable OBEN, T BRENDA MD Unavailable Unavailable OBEN, T BRENDA MD Unavailable Unavailable OBEN, T BRENDA MD Unavailable Unavailable OBEN, T BRENDA MD Unavailable Unavailable OBEN, T BRENDA MD Unavailable Unavailable OBEN, T BRENDA MD Unavailable Unavailable OBEN, T BRENDA MD Unavailable Unavailable OBEN, T BRENDA MD Unavailable Unavailable OBEN, T BRENDA MD Unavailable Unavailable OBEN, Guy GUTIERREZ MD Unavailable Unavailable OBEN, T BRENDA GONZALES Unavailable Unavailable OBEN, Guy GUTIERREZ MD Unavailable Unavailable OBEN, T BRENDA GONZALES Unavailable Unavailable Bartoszewski, Vani Chioma MS, RPA-C Unavailable Unav ailable Bartoszewski, Vani Chioma MS, RPA-C Unavailable Unav ailable Bartoszewski, Vani Chioma MS, RPA-C Unavailable Unav ailable Bartoszewski, Vani Chioma MS, RPA-C Unavailable Unav ailable Bartoszewski, Vani Chioma MS, RPA-C Unavailable Unav ailable Bartoszewski, Vani Chioma MS, RPA-C Unavailable Unav ailable Bartoszewski, Vani Chioma MS, RPA-C Unavailable Unav ailable Bartoszewski, Vani Chioma MS, RPA-C Unavailable Unav ailable Bartoszewski, Vani Chioma MS, RPA-C Unavailable Unav ailable Bartoszewski, Vani Chioma MS, RPA-C Unavailable Unav ailable Bartoszewski, Vani Chioma MS, RPA-C Unavailable Unav ailable Bartoszewski, Vani Chioma MS, RPA-C Unavailable Unav ailable Bartoszewski, Vani Chioma MS, RPA-C Unavailable Unav ailable Bartoszewski, Vani Chioma MS, RPA-C Unavailable Unav ailable Bartoszewski, Vani Chioma MS, RPA-C Unavailable Unav ailable Bartoszewski, Vani Chioma MS, RPA-C Unavailable Unav ailable Bartoszewski, Vani Chioma MS, RPA-C Unavailable Unav ailable Bartoszewski, Vani Chioma MS, RPA-C Unavailable Unav ailable Bartoszewski, Vani Chioma MS, RPA-C Unavailable Unav ailable Bartoszewski, Vani Chioma MS, RPA-C Unavailable Unav ailable Bartoszewski, Vani Chioma MS, RPA-C Unavailable Unav ailable Bartoszewski, Vani Chioma MS, RPA-C Unavailable Unav ailable Bartoszewski, Vani Chioma MS, RPA-C Unavailable Unav ailable Bartoszewski, Vani Bedolla MS, RPA-C Unavailable Unav ailable Bartoszewski, Vani Bedolla MS, RPA-C Unavailable Unav ailable Bartoszewski, Vani Bedolla MS, RPA-C Unavailable Unav ailable Bartoszewski, Vani Bedolla MS, RPA-C Unavailable Unav ailable Bartoszewski, Vani Bedolla MS, RPA-C Unavailable Unav ailable Bartoszewski, Vani Bedolla MS, RPA-C Unavailable Unav ailable Re-disclosure Warning The records that you are about to access may contain information from federally-assisted alcohol or drug abuse programs. If such information is present, then the following federally mandated warning applies: This information has been disclosed to you from records protected by federal confidentiality rules (42 CFR part 2). The federal rules prohibit you from making any further disclosure of this information unless further disclosure is expressly permitted by the written consent of the person to whom it pertains or as otherwise permitted by 42 CFR part 2. A general authorization for the release of medical or other information is NOT sufficient for this purpose. The Federal rules restrict any use of the information to criminally investigate or prosecute any alcohol or drug abuse patient.The records that you are about to access may contain highly sensitive health information, the redisclosure of which is protected by Article 27-F of the [facility] Public Health law. If you continue you may have access to information: Regarding HIV / AIDS; Provided by facilities licensed or operated by the [facility] Office of Mental Health; or Provided by the [facility] Office for People With Developmental Disabilities. If such information is present, then the following [facility] mandated warning applies: This information has been disclosed to you from confidential records which are protected by state law. State law prohibits you from making any further disclosure of this information without the specific written consent of the person to whom it pertains, or as otherwise permitted by law. Any unauthorized further disclosure in violation of state law may result in a fine or long term sentence or both. A general authorization for the release of medical or other information is NOT sufficient authorization for further disc losure. Allergies and Adverse Reactions Type Description Substance Reaction Status Data Source(s ) No Known Drug Allergies No Known Drug Allergies [facility] Family History Family Member Name Family Member Gender Family Member Status Date o f Status Description Data Source(s) Unknown Male Problem MEDENT ([facility]) Unknown Unknown Problem MEDENT ([facility] ) Unknown Male Problem MEDENT ([facility]) Encounters Encounter Providers Location Date Indications Data Source(s ) Outpatient Attender: Corie HILL Main office - [place] 06/18/2020 07:00:00 AM EST MEDENT ([facility]) Outpatient Attender: Corie HILL Main office - [place] 05/14/2020 02:00:00 PM EDT MEDENT ([facility]) Outpatient Attender: BRENDA HEALY MD 04/09/20 11:11:00 AM EDT - 04/09/2020 11:11:00 AM EDT [facility] Outpatient Attender: Jesse Trujillo MD Main Office 03/25/2020 10:00:00 AM EDT MEDENT ([facility]) Outpatient Attender: Corie HILL Main office - [place] 01/28/2020 11:15:00 AM EDT MEDENT ([facility]) [place] [address] [address] 01/11/2020 12:00:00 AM EDT eCW1 ([facility] [address] [address] 12/10/2019 12:00:00 AM EDT eCW1 ([facility]) Outpatient Attender: Corie HILL Main office - [facility] 10/25/2019 09:00:00 AM EDT MEDENT ([facility]) Outpatient 09/18/2019 08:24:00 AM EST [facility] Outpatient Attender: BRENDA HEALY MD 09/05/19 08:36:00 AM EST - 09/05/2019 08:36:00 AM EST [facility] Outpatient Attender: Chioma Griffiths MS, RPA-C Family P jenntice 09/05/2019 08:00:00 AM EST MEDENT ([facility]) Outpatient 09/04/2019 12:18:00 PM EST [facility] Outpatient 08/14/2019 12:00:00 AM EST [facility] [place] [address] 06/29/2019 12:00:00 AM EST eCW1 ([facility]) Immunizations Vaccine Date Status Description Data Source(s) INFLUENZA VIRUS VACCINE QUADRIVALENT 2020-21 (6 MOS AN D UP) 08/13/2020 12:00:00 AM EST completed [facility] Medications Medication Brand Name Start Date Product Form Dose Route Admi nistrative Instructions Pharmacy Instructions Status Indications Reaction Description Data Source(s) pregabalin 100 MG Oral Capsule Pregabalin 05/29/2020 12:00:00 AM EDT ORAL active MEDENT ([facility] ) Methocarbamol 750 MG Oral Tablet Methocarbamol 05/14/2020 12:00:00 AM EDT ORAL active MEDENT ([facility] ) eletriptan 40 MG Oral Tablet [Relpax] Relpax 05/08/2020 12:00:00 AM EDT ORAL active MEDENT ([facility] ) pregabalin 50 MG Oral Capsule Pregabalin 05/08/2020 12:00:00 AM EDT ORAL completed MED[facility] ([facility] ) Alprazolam 0.25 MG Oral Tablet Alprazolam 05/08/2020 12:00:00 AM EDT ORAL completed MEDENT ([facility] ) Suprep Bowel Prep Kit Suprep Bowel Prep Kit 03/25/2020 12:00:00 AM EDT active MEDENT ([facility]) gabapentin 300 MG Oral Capsule Gabapentin 03/14/2020 12:00:00 AM EDT ORAL completed MEDENT ([facility] ) Zofran ODT 4 MG UNK 01/11/2020 12:00:00 AM EDT 1.0 {tablet_on_the_tongue_and_allow_to_dissolve} active Zofran ODT 4 MG eCW1 ([facility]) gabapentin 100 MG Oral Capsule Gabapentin 12/14/2019 12:00:00 AM EDT ORAL active MEDENT ([facility] ) Methocarbamol 500 MG Oral Tablet Methocarbamol 11/28/2019 12:00:00 AM EDT ORAL completed MEDENT ([facility]) Methylprednisolone 4 MG Oral Tablet [Medrol] Medrol 12:00:00 AM EDT active MEDENT ( [facility]) Triamcinolone Acetonide 1 MG/ML Topical Cream Triamcin olone Acetonide 0.1 % Triamcinolone Acetonide 0.1 % 06/29/2019 12:00:00 AM EST active 1 application to arms, trunk, legs eCW1 ([facility]) Insurance Providers Payer name Policy type / Coverage type Policy ID Covered democrat ID Covered democrat's relationship to valencia Policy [place] Plan Information EAST HUMANA [id number] [id number] HUMANA [place] [id number] S [id number] [place]AST [employer]NA [place] UNAVAILABLE 01 UNAVAILABLE NO FAULT [id number] SP [id number] U [id number] NO FAULT [id number] SP [id number] EAST [employer]MANA - O/P [id number] 19 [id number] [employer]AST [employer] - PHYSICIAN [id number] 19 [id number] East Referrals Commercial [id number] Self [id number] East Referrals Commercial [id number] Self [id number] East [employer] Commercial [id number] Family Dependent [id number] EAST [employer]MANA - PHYSICIAN CO UNAVAILABLE 01 UNAVAILABLE East Referrals Commercial [id number] Self [id number] East [employer] Commercial [id number] Family Dependent [id number] East Referrals Commercial [id number] Self [id number] East [employer] Commercial [id number] Family Dependent [id number] [place] [employer] [id number] 01 [id number] East Referrals Commercial [id number] Self [id number] [facility] (2018) Health Maintenance Organization (HMO) [id number] Family Dependent [id number] [facility] Commercial [id number] Family Dependent [id number] ANSI-Not a Secondary Insurance [id number] ANSI-Not a Secondary Insurance [id number] ANSI-Not a Secondary Insurance [id number] [facility] [id number] 2 [id number] [facility] [id number] 2 [id number] Problems, Conditions, and Diagnoses Code Display Name Description Problem Type Effective Dates Data Source(s) 64558342 Obstructive sleep apnea syndrome Obstructive sle ep apnea syndrome Problem 05/15/2020 12:00:00 AM EDT MEDENT ([facility] ) 03242989 Visual disturbance Visual disturbance Problem 03/2020 12:00:00 AM EDT MEDENT ([facility] ) 607115639 Low back pain Low back pain Problem 05/15/2020 12:00:00 AM EDT MEDENT ([facility] ) 45041740 Neck pain Neck pain Problem 05/15/2020 12:00:00 AM ED T MEDENT ([facility] ) 329031156 Fibromyalgia Fibromyalgia Problem 05/15/2020 12:00:00 A M EDT MEDENT ([facility] ) 93602093 Cervico-occipital neuralgia Cervico-occipital neuralgi a Problem 05/15/2020 12:00:00 AM EDT MEDENT ([facility] ) [id number] Chronic intractable migraine without aur a Chronic intractable migraine without aura Problem 05/15/2020 12:00:00 AM EDT MEDENT ([facility] ) 000861170 Screening for malignant neoplasm of colo n Screening for malignant neoplasm of colon Problem 03/25/2020 12:00:00 AM EDT MEDENT ([facility]) M79.7 [id number] Fibromyalgia Problem 01/11/2020 12:00:00 AM EDT eCW1 ([facility]) F41.9 89845528 Anxiety Problem 01/11/2020 12:00:00 AM ED T eCW1 ([facility]) R39.15 73150072 Urinary urgency Problem 01/11/2020 12:00:00 AM EDT eCW1 ([facility]) K21.9 235834044 Gastroesophageal ref lux disease, esophagitis presence not specified Problem 01/11/2020 12:00:00 AM EDT eCW1 ([facility]) R73.03 485311445 Pre-diabetes Problem 01/11/2020 12:00:00 AM EDT eCW1 ([facility]) G89.29 76305424 Other chronic pain Problem 01/11/2020 12:00: 00 AM EDT eCW1 ([facility]) F32.9 22958881 Depression, unspecified depression type P roblem 01/11/2020 12:00:00 AM EDT eCW1 ([facility]) M54.5 480939989 Low back pain Problem 01/11/2020 12:00:00 AM EDT eCW1 ([facility]) Z91.09 222141392 Environmental allergies Problem 01/11/2020 1 2:00:00 AM EDT eCW1 ([facility]) G47.30 29740208 Sleep apnea, unspecified type Problem 01/11/2020 12:00:00 AM EDT eCW1 ([facility]) E03.9 49804909 Hypothyroidism, unspecified type Problem 01/11/2020 12:00:00 AM EDT eCW1 ([facility]) I10 33717703 Hypertension, unspecified type Problem 01/10 12:00:00 AM EDT eCW1 ([facility]) E78.00 32728478 High cholesterol Problem 01/11/2020 12:00:00 AM EDT eCW1 ([facility]) 12297117 Urge incontinence of urine Urge incontinence of urine Problem 09/05/2019 12:00:00 AM EST MEDENT ([facility]) Surgeries/Procedures Procedure Description Date Indications Data Source(s) Inj, Anesth Agent, Trigeminal 07/15/2020 12:00:[address] MEDENT ([facility] ) Injection For Nerve Block, Greater Occipital Nerve 07/15/2020 12:00:00 AM EST MEDENT ([facility] ) INJECTION ANES OTHER PERIPHERAL NERVE/BRANCH 0 12:00:00 AM EST MEDENT ([facility] ) MRI BRAIN BRAIN STEM W/O CONTRAST MATERIAL 05/10/2020 12:00:00 AM EDT MEDENT ([facility] ) MRI BRAIN BRAIN STEM W/O CONTRAST MATERIAL 05/10/2020 12:00:00 AM EDT MEDENT ([facility] ) Inj, Anesth Agent, Trigeminal 04/28/2020 12:00:00 AM E DT MEDENT ([facility] ) Injection For Nerve Block, Greater Occipital Nerve 04/28/2020 12:00:00 AM EDT MEDENT ([facility] ) INJECTION ANES OTHER PERIPHERAL NERVE/BRANCH 0 12:00:00 AM EDT MEDENT ([facility] ) Inj, Anesth Agent, Trigeminal 03/24/2020 12:00:00 AM E DT MEDENT ([facility] ) Injection For Nerve Block, Greater Occipital Nerve 03/24/2020 12:00:00 AM EDT MEDENT ([facility] ) INJECTION ANES OTHER PERIPHERAL NERVE/BRANCH 0 12:00:00 AM EDT MEDENT ([facility] ) Inj, Anesth Agent, Trigeminal 01/30/2020 12:00:00 AM E DT MEDENT ([facility] ) Injection For Nerve Block, Greater Occipital Nerve 01/30/2020 12:00:00 AM EDT MEDENT ([facility] ) INJECTION ANES OTHER PERIPHERAL NERVE/BRANCH 0 12:00:00 AM EDT MEDENT ([facility] ) Medication: Zofran ODT Tab 4mg (Ondansetron) 0 12:00:00 AM EDT eCW1 ([facility]) Needle electromyography, each extremity, with related paraspinal areas, when performed, done with nerve conduction, amplitude and latency/velocity study; complete, five or more muscles studied, innervated by three or more nerves or four or more spinal levels (list separately in addition to the code for primary procedure). 12/26/2019 12:00:00 AM EDT MEDEN T ([facility], ) Needle electromyography, each extremity, with related paraspinal areas, when performed, done with nerve conduction, amplitude and latency/velocity study; complete, five or more muscles studied, innervated by three or more nerves or four or more spinal levels (list separately in addition to the code for primary procedure). 12/26/2019 12:00:00 AM EDT MEDEN T ([facility], ) Nerve Conduction 11-12 Studies 12/26/2019 12:00:00 AM EDT MEDENT ([facility] ) Inj, Anesth Agent, Trigeminal 12/24/2019 12:00:00 AM E DT MEDENT ([facility] ) Injection For Nerve Block, Greater Occipital Nerve 12/24/2019 12:00:00 AM EDT MEDENT ([facility] ) INJECTION ANES OTHER PERIPHERAL NERVE/BRANCH 0 12:00:00 AM EDT MEDENT ([facility] ) Inj, Anesth Agent, Trigeminal 11/13/2019 12:00:00 AM E DT MEDENT ([facility] ) Injection For Nerve Block, Greater Occipital Nerve 11/13/2019 12:00:00 AM EDT MEDENT ([facility] ) INJECTION ANES OTHER PERIPHERAL NERVE/BRANCH 0 12:00:00 AM EDT MEDENT ([facility] ) Inj, Anesth Agent, Trigeminal 10/09/2019 12:00:[address] MEDENT ([facility] ) Injection For Nerve Block, Greater Occipital Nerve 10/09/2019 12:00:00 AM EST MEDENT ([facility] ) INJECTION ANES OTHER PERIPHERAL NERVE/BRANCH 0 12:00:00 AM EST MEDENT ([facility] ) Inj, Anesth Agent, Trigeminal 09/07/2019 12:00:[address] MEDENT ([facility] ) Injection For Nerve Block, Greater Occipital Nerve 09/07/2019 12:00:00 AM EST MEDENT ([facility] ) INJECTION ANES OTHER PERIPHERAL NERVE/BRANCH 0 12:00:00 AM EST MEDENT ([facility] ) Measurement Post Voiding Residual Urine By Ultrasound,Non-Im aging 09/05/2019 12:00:00 AM EST MEDENT ([facility]) Inj, Anesth Agent, Trigeminal 07/10/2019 12:00:[address] MEDENT ([facility] ) Injection For Nerve Block, Greater Occipital Nerve 07/10/2019 12:00:00 AM EST MEDENT ([facility] ) INJECTION ANES OTHER PERIPHERAL NERVE/BRANCH 9 12:00:00 AM EST MEDENT ([facility] ) Results ID Date Data Source [id number] 04/09/2020 12:18:00 PM EDT MEDENT ([facility]) Name Value Range Interpretation Code Description Data Carolyn rce(s) Supporting Document(s) Color of Urine Laboratory test result MEDENT ([facility]) Spec [place] [facility] pH of Urine by Test strip 5 MEDE NT ([facility]) Appearance of Urine Laboratory test result [facility] ([facility]) Protein [Presence] in Urine by Test strip Laboratory test result [facility] ([facility]) Nitrate [Presence] in Urine Laboratory test result [facility] ([facility]) Leukocytes Laboratory test result [facility] ([facility]) Inhouse Glucose Laboratory test result [facility] ([facility]) Urobilinogen Laboratory test result [facility] ([facility]) Ketones [Presence] in Urine by Test strip Laboratory test result [facility] ([facility]) Bilirubin.total [Presence] in Urine by Test strip Laboratory test res ult [facility] ([facility]) Blood type and Indirect antibody screen panel - Blood Laboratory test result [facility] ([facility]) ID Date Data Source [id number] 09/05/2019 09:16:00 AM EST [facility] ([facility]) Name Value Range Interpretation Code Description Data Carolyn rce(s) Supporting Document(s) Spec [place] 1.015 [facility] ([facility]) Color of Urine dark [facility] ([facility]) Appearance of Urine cloudy [facility] ([facility]) Nitrate [Presence] in Urine - ME DENT ([facility]) pH of Urine by Test strip 8 MEDE NT ([facility]) Leukocytes - MED[facility] ([facility]) Urobilinogen normal [facility] ([facility]) Protein [Presence] in Urine by Test strip - [facility] ([facility]) Inhouse Glucose normal [facility] ([facility]) Ketones [Presence] in Urine by Test strip - [facility] ([facility]) Blood type and Indirect antibody screen panel - Blood - [facility] ([facility]) Bilirubin.total [Presence] in Urine by Test strip - [facility] ([facility]) Procedure Social History Code Duration Value Status Description Data Source(s ) Smoking 04/09/2020 12:00:00 AM EDT Never Smoked Cigarettes com pleted Never Smoked Cigarettes [facility] ([facility]) Smoking 01/11/2020 12:00:00 AM EDT Never Smoker completed Never S cheryle eCW1 ([facility]) Vital Signs ID Date Data Source UNK Name Value Range Interpretation Code Description Data Source(s) Respiratory rate 20 /min 20 /min [facility] ( [facility]) Heart rate 68 /min 68 /min [facility] ([facility]) Diastolic blood pressure 100 mm[Hg] 100 mm[Hg] [facility] ([facility]) Systolic blood pressure 130 mm[Hg] 130 mm[Hg] M EDENT ([facility]) Oxygen saturation in Arterial blood by Pulse oximetry 97 % 97 % [facility] ([facility]) Respiratory rate 22 /min 22 /min [facility] ( [facility]) Heart rate 70 /min 70 /min [facility] ([facility]) Diastolic blood pressure 74 mm[Hg] 74 mm[Hg] [facility] ([facility]) Systolic blood pressure 111 mm[Hg] 111 mm[Hg] M EDENT ([facility]) Body weight 116.575 kg 116.575 kg [facility] ([facility]) Body mass index (BMI) [Ratio] 45.5 kg/m2 45.5 k g/m2 [facility] ([facility]) Heart rate 87 /min 87 /min [facility] ([facility]) Diastolic blood pressure 93 mm[Hg] 93 mm[Hg] [facility] ([facility]) Systolic blood pressure 138 mm[Hg] 138 mm[Hg] M EDENT ([facility]) Body weight 257.00 [lb_av] 257.00 [lb_av] MEDEN T ([facility]) Temp 97.5 Body height 63 [in_i] 63 [in_i] [facility] ([facility]) 5'3" Diastolic blood pressure 83 mm[Hg] 83 mm[Hg] eCW1 ([facility]) Systolic blood pressure 136 mm[Hg] 136 mm[Hg] e CW1 ([facility]) Body temperature 98.9 [degF] 98.9 [degF] eCW1 ( [facility]) Respiratory rate 18 /min 18 /min eCW1 ([facility]) Heart rate 68 /min 68 /min eCW1 ([facility]) Body mass index (BMI) [Ratio] 51.75 kg/m2 51.75 kg/m2 eCW1 ([facility]) Body height 60 [in_i] 60 [in_i] eCW1 ([facility]) Body weight 265 [lb_av] 265 [lb_av] eCW1 ([facility]) Respiratory rate 16 /min 16 /min MEDENT ( [facility]) Heart rate 76 /min 76 /min MED[facility] ([facility] ) Diastolic blood pressure 80 mm[Hg] 80 mm[Hg] MEDENT ([facility] ) Systolic blood pressure 110 mm[Hg] 110 mm[Hg] M EDENT ([facility]) Body weight 122.472 kg 122.472 kg MEDENT ([facility]) Body weight 270.00 [lb_av] 270.00 [lb_av] MEDEN T ([facility]) Oxygen saturation in Arterial blood by Pulse oximetry 97 % 97 % MED[facility] ([facility]) Respiratory rate 16 /min 16 /min [facility] ( [facility]) Heart rate 71 /min 71 /min MED[facility] ([facility]) Diastolic blood pressure 85 mm[Hg] 85 mm[Hg] MED[facility] ([facility]) Systolic blood pressure 123 mm[Hg] 123 mm[Hg] M EDENT ([facility]) Body weight 120.204 kg 120.204 kg MEDENT ([facility]) Body weight 265.00 [lb_av] 265.00 [lb_av] MEDEN T ([facility]) Oxygen saturation in Arterial blood by Pulse oximetry 97 % 97 % [facility] ([facility]) Respiratory rate 16 /min 16 /min MED[facility] ( [facility]) Heart rate 69 /min 69 /min MEDENT ([facility]) Diastolic blood pressure 85 mm[Hg] 85 mm[Hg] MED[facility] ([facility]) Systolic blood pressure 123 mm[Hg] 123 mm[Hg] M EDENT ([facility]) Diastolic blood pressure 100 mm[Hg] 100 mm[Hg] eCW1 ([facility]) Systolic blood pressure 145 mm[Hg] 145 mm[Hg] e CW1 ([facility]) Body temperature [degF] eCW1 ([facility]) Respiratory rate 16 /min 16 /min eCW1 ([facility]) Heart rate 69 /min 69 /min eCW1 ([facility]) Body mass index (BMI) [Ratio] 51.75 kg/m2 51.75 kg/m2 eCW1 ([facility]) Body height 60 [in_us] 60 [in_us] eCW1 ([facility]) Body weight Measured 265 [lb_av] 265 [lb_av] eC W1 ([facility]) Patient Treatment Plan of Care Planned Activity Planned Date Details Description Data Source (s) Alisha MOSS 4 MG 01/11/2020 12:00:00 AM EDT eCW1 ([facility]) Triamcinolone Acetonide 1 MG/ML Topical Cream 06/29/2019 12:00:00 A M EST eCW1 ([facility])
[2020-08-26 10:08] LABS: BASO % 0.3 % (0.0-1.0); EOS # 0.1 10^3/uL (0.0-0.5); EOS % 1.6 % (0.0-3.0); HEMATOCRIT 38.7 % (36.0-47.0); HEMOGLOBIN 12.4 g/dl (12.0-15.5); LYMPH # 1.7 10^3/uL (1.5-5.0); LYMPH % 24.6 % (24.0-44.0); MEAN CORPUSCULAR HEMOGLOBIN 29.7 pg (27.0-33.0); MEAN CORPUSCULAR VOLUME 92.8 fl (80.0-96.0); MONO # 0.3 10^3/uL (0.0-0.8); NEUTROPHILS # 4.6 10^3/uL (1.5-8.5); PLATELET COUNT, AUTOMATED 243 10^3/uL (150-450); RED BLOOD COUNT 4.17 10^6/uL (4.00-5.40); WHITE BLOOD COUNT 6.7 10^3/uL (4.0-10.0)
[2020-08-26] MEDS: ALBUTEROL 90 MCG/ACT 8GM HFA INHALER INH SCH ×4 (10:08→20:16)
--- NOTE | 2020-08-26 10:13 | REP ---
INDICATION: Coronavirus workup COMPARISON: None. TECHNIQUE: Portable AP view of the chest FINDINGS: The mediastinum and cardiac silhouette are within normal limits for portable technique. Diffuse bilateral infiltrates are appreciated and otherwise nonspecific. No effusion. No pneumothorax. Skeletal structures are intact. IMPRESSION: Diffuse bilateral airspace disease consistent with multifocal pneumonia/COVID-19 pulmonary disease. <Electronically signed by Placido Osei > 08/26/20 [id number]
[2020-08-26] MEDS ORDERED: MAGN400T3 PO (10:19)
[2020-08-26] MEDS ORDERED: ARIP1TAB (10:19)
[2020-08-26] MEDS ORDERED: ESCI10TA16 (10:19)
[2020-08-26] MEDS ORDERED: ALIG4CAP PO ×2 (10:19→12:36)
[2020-08-26] MEDS ORDERED: METF-838 PO ×2 (10:19→12:36)
[2020-08-26] MEDS ORDERED: CETI-24 PO (10:19)
[2020-08-26] MEDS ORDERED: PANT40TA29 PO ×2 (10:19→12:36)
[2020-08-26] MEDS ORDERED: DULO1CAP6 PO (10:19)
[2020-08-26 10:22] LABS: INR 0.88; PROTHROMBIN TIME 12.1 SECONDS (12.5-14.3)
[2020-08-26] MEDS ORDERED: FISH1000 PO ×2 (10:23→12:36)
[2020-08-26 10:25] LABS: D-DIMER QUANT 1573.3 ng/ml (<500)
[2020-08-26 10:44] LABS: ALBUMIN 2.8 GM/DL (3.2-5.2); ALT/SGPT 49 U/L (12-78); BILIRUBIN,TOTAL 0.5 MG/DL (0.2-1.0); BLOOD UREA NITROGEN 14 MG/DL (7-18); CALCIUM LEVEL 8.7 MG/DL (8.5-10.1); CARBON DIOXIDE LEVEL 28 MEQ/L (21-32); CHLORIDE LEVEL 103 MEQ/L (98-107); CREATININE FOR GFR 0.99 MG/DL (0.55-1.30); GLOMERULAR FILTRATION RATE > 60.0 (>51); GLUCOSE, FASTING 177 MG/DL (70-100); POTASSIUM SERUM 3.6 MEQ/L (3.5-5.1); SODIUM LEVEL 140 MEQ/L (136-145); TOTAL PROTEIN 6.9 GM/DL (6.4-8.2)
--- OUTSIDE RECORDS SUMMARY | 2020-08-26 10:59 | CCD ---
Author Author [facility] Organization [facility] Address Unknown Phone Unavailable Care Team Providers Care Drywall Hanger Framer Name Role Phone Marlen Trujillo MD Unavailable [...] Unavailable Unavailable Marlen Trujillo MD Unavailable Unavailable Mralen Trujillo MD Unavailable Unavailable Marlen Trujillo MD [...] Chioma MS, RPA-C Unavailable Unav ailable Bartoszewski, Vnai Chioma MS, RPA-C Unavailable Unav ailable Bartoszewski, [...] MS, RPA-C Unavailable Unav ailable Bartoszewski, Vani Bedlola MS, RPA-C Unavailable Unav ailable Bartoszewski, Vani [...] is protected by Article 27-F of the [facility] Public Health law. If you continue you may have access to information: Regarding HIV / AIDS; Provided by facilities licensed or operated by the [facility] Office of Mental Health; or Provided by the [facility] Office for People With Developmental Disabilities. If such information is present, then the following [facility] mandated warning applies: This information has been [...] law may result in a fine or group home sentence or both. A general authorization for the release of medical or other information is NOT sufficient authorization for further disc losure. Allergies and Adverse Reactions Type Description Substance Reaction Status Data Source(s ) No Known Drug Allergies No Known Drug Allergies [facility] Family History Family Member Name Family Member Gender Family Member Status Date o f Status Description Data Source(s) Unknown Male Problem MEDENT ([facility]) Unknown Unknown Problem MEDENT ([facility] ) Unknown Male Problem MEDENT ([facility]) Encounters Encounter Providers Location Date Indications Data Source(s ) Outpatient Attender: Corie HILL [place] office [place] [place] 06/18/2020 07:00:00 AM EST MEDENT ([facility]) Outpatient Attender: Corie HILL Main office - [facility] [place] 05/14/2020 02:00:00 PM EDT MEDENT ([facility]) Outpatient Attender: BRENDA HEALY MD 04/09/20 11:11:00 AM EDT - 04/09/2020 11:11:00 AM EDT [facility] Outpatient Attender: Jesse Trujillo MD Main Office 03/25/2020 10:00:00 AM EDT MEDENT ([facility]) Outpatient Attender: Corie HILL Main office - [place] [place] 01/28/2020 11:15:00 AM EDT MEDENT ([facility]) Outpatient [address] [facility] [address] 01/11/2020 12:00:00 AM EDT eCW1 ([facility] [address] [facility] [address] 12/10/2019 12:00:00 AM EDT eCW1 ([facility]) Outpatient Attender: Corie HILL Main office - [facility] n 10/25/2019 09:00:00 AM EDT MEDENT ([facility]) Outpatient 09/18/2019 08:24:00 AM EST [facility] Outpatient Attender: BRENDA HEALY MD 09/05/19 08:36:00 AM EST - 09/05/2019 08:36:00 AM EST [facility] Outpatient Attender: Chioma Griffiths MS, RPA-C Family P jenntice 09/05/2019 08:00:00 AM EST MEDENT ([facility]) Outpatient 09/04/2019 12:18:00 PM EST [facility] Outpatient 08/14/2019 12:00:00 AM EST [facility] [place] [address] 06/29/2019 12:00:00 AM EST eCW1 ([facility]) Immunizations Vaccine Date Status Description Data Source(s) INFLUENZA VIRUS VACCINE QUADRIVALENT 2020-21 (6 MOS AN D UP) 08/13/2020 12:00:00 AM EST completed [facility] Medications Medication Brand Name Start Date Product Form Dose Route Admi nistrative Instructions Pharmacy Instructions Status Indications Reaction Description Data Source(s) pregabalin 100 MG Oral Capsule Pregabalin 05/29/2020 12:00:00 AM EDT ORAL active MEDENT ([facility] ) Methocarbamol 750 MG Oral Tablet Methocarbamol 05/14/2020 12:00:00 AM EDT ORAL active MEDENT ([facility] ) eletriptan 40 MG Oral Tablet [Relpax] Relpax 05/08/2020 12:00:00 AM EDT ORAL active MEDENT ([facility] ) pregabalin 50 MG Oral Capsule Pregabalin 05/08/2020 12:00:00 AM EDT ORAL completed MEDENT ([facility] ) Alprazolam 0.25 MG Oral Tablet Alprazolam 05/08/2020 12:00:00 AM EDT ORAL completed MEDENT ([facility] ) Suprep Bowel Prep Kit Suprep Bowel Prep Kit 03/25/2020 12:00:00 AM EDT active MEDENT ([facility]) gabapentin 300 MG Oral Capsule Gabapentin 03/14/2020 12:00:00 AM EDT ORAL completed MEDENT ([facility] ) Zofran ODT 4 MG UNK 01/11/2020 12:00:00 AM EDT 1.0 {tablet_on_the_tongue_and_allow_to_dissolve} active Zofran ODT 4 MG eCW1 ([facility]) gabapentin 100 MG Oral Capsule Gabapentin 12/14/2019 12:00:00 AM EDT ORAL active MEDENT ([facility] ) Methocarbamol 500 MG Oral Tablet Methocarbamol 11/28/2019 12:00:00 AM EDT ORAL completed MEDENT ([facility]) Methylprednisolone 4 MG Oral Tablet [Medrol] Medrol 12:00:00 AM EDT active MEDENT ( [facility]) Triamcinolone Acetonide 1 MG/ML Topical Cream Triamcin olone Acetonide 0.1 % Triamcinolone Acetonide 0.1 % 06/29/2019 12:00:00 AM EST active 1 application to arms, trunk, legs eCW1 ([facility]) Insurance Providers Payer name Policy type / Coverage type Policy ID Covered democrat ID Covered democrat's relationship to valencia Policy [place] Plan Information EAST HUMANA [id number] HUMANA [place]AST REG O [id number] S [id number] [place] [employer] [place] UNAVAILABLE 01 UNAVAILABLE NO FAULT [id number] SP [id number] U [id number] NO FAULT [id number] SP [id number] EAST [employer] - O/P [id number] 19 [id number] EAST [employer] - PHYSICIAN [id number] 19 [id number] East Referrals Commercial [id number] Self [id number] East Referrals Commercial [id number] Self [id number] East [employer] Commercial [id number] Family Dependent [id number] EAST [employer]NA - PHYSICIAN CO UNAVAILABLE 01 UNAVAILABLE East Referrals Commercial [id number] Self [id number] East [employer] Commercial [id number] Family Dependent [id number] East Referrals Commercial [id number] Self [id number] East [employer] Commercial [id number] Family Dependent [id number] [place] [employer] [id number] 01 [id number] East Referrals Commercial [id number] Self [id number] [employer] (2018) Health Maintenance Organization (HMO) [id number] Family Dependent [id number] [facility] Commercial [id number] Family Dependent [id number] ANSI-Not a Secondary Insurance [id number] ANSI-Not a Secondary Insurance [id number] ANSI-Not a Secondary Insurance [id number] [facility] [id number] [facility] [id number] Problems, Conditions, and Diagnoses Code Display Name Description Problem Type Effective Dates Data Source(s) 76593588 Obstructive sleep apnea syndrome Obstructive sle ep apnea syndrome Problem 05/15/2020 12:00:00 AM EDT MEDENT ([facility] 47305081 Visual disturbance Visual disturbance Problem 03/2020 12:00:00 AM EDT MEDENT ([facility] ) 431870298 Low back pain Low back pain Problem 05/15/2020 12:00:00 AM EDT MEDENT ([facility] ) 86102221 Neck pain Neck pain Problem 05/15/2020 12:00:00 AM ED T MEDENT ([facility] ) [id number] Fibromyalgia Fibromyalgia Problem 05/15/2020 12:00:00 A M EDT MEDENT ([facility] ) 60257348 Cervico-occipital neuralgia Cervico-occipital neuralgi a Problem 05/15/2020 12:00:00 AM EDT MEDENT ([facility] ) [id number] Chronic intractable migraine without aur a Chronic intractable migraine without aura Problem 05/15/2020 12:00:00 AM EDT MEDENT ([facility] ) [id number] Screening for malignant neoplasm of colo n Screening for malignant neoplasm of colon Problem 03/25/2020 12:00:00 AM EDT MEDENT ([facility]) M79.7 [id number] Fibromyalgia Problem 01/11/2020 12:00:00 AM EDT eCW1 ([facility]) F41.9 77379220 Anxiety Problem 01/11/2020 12:00:00 AM ED T eCW1 ([facility]) R39.15 46824686 Urinary urgency Problem 01/11/2020 12:00:00 AM EDT eCW1 ([facility]) K21.9 031716476 Gastroesophageal ref lux disease, esophagitis presence not specified Problem 01/11/2020 12:00:00 AM EDT eCW1 ([facility]) R73.03 345035109 Pre-diabetes Problem 01/11/2020 12:00:00 AM EDT eCW1 ([facility]) G89.29 18707465 Other chronic pain Problem 01/11/2020 12:00: 00 AM EDT eCW1 ([facility]) F32.9 93548146 Depression, unspecified depression type P roblem 01/11/2020 12:00:00 AM EDT eCW1 ([facility]) M54.5 292221177 Low back pain Problem 01/11/2020 12:00:00 AM EDT eCW1 ([facility]) Z91.09 606389533 Environmental allergies Problem 01/11/2020 1 2:00:00 AM EDT eCW1 ([facility]) G47.30 11394848 Sleep apnea, unspecified type Problem 01/11/2020 12:00:00 AM EDT eCW1 ([facility]) E03.9 76382657 Hypothyroidism, unspecified type Problem 01/11/2020 12:00:00 AM EDT eCW1 ([facility]) I10 91251132 Hypertension, unspecified type Problem 01/10 12:00:00 AM EDT eCW1 ([facility]) E78.00 94185477 High cholesterol Problem 01/11/2020 12:00:00 AM EDT eCW1 ([facility]) 55978601 Urge incontinence of urine Urge incontinence of urine Problem 09/05/2019 12:00:00 AM EST MEDENT ([facility]) Surgeries/Procedures Procedure Description Date Indications Data Source(s) Inj, Anesth Agent, Trigeminal 07/15/2020 12:00:[address] MEDENT ([facility] ) Injection For Nerve Block, Greater Occipital Nerve 07/15/2020 12:00:00 AM EST MEDENT ([facility] ) INJECTION ANES OTHER PERIPHERAL NERVE/BRANCH 0 12:00:00 AM EST MEDENT ([facility] ) MRI BRAIN BRAIN STEM W/O CONTRAST MATERIAL 05/10/2020 12:00:00 AM EDT MEDENT ([facility] ) MRI BRAIN BRAIN STEM W/O CONTRAST MATERIAL 05/10/2020 12:00:00 AM EDT MEDENT ([facility] ) Inj, Anesth Agent, Trigeminal 04/28/2020 12:00:00 AM E DT MEDENT ([facility] ) Injection For Nerve Block, Greater Occipital Nerve 04/28/2020 12:00:00 AM EDT MEDENT ([facility] ) INJECTION ANES OTHER PERIPHERAL NERVE/BRANCH 0 12:00:00 AM EDT MEDENT ([facility] ) Inj, Anesth Agent, Trigeminal 03/24/2020 12:00:00 AM E DT MEDENT ([facility] ) Injection For Nerve Block, Greater Occipital Nerve 03/24/2020 12:00:00 AM EDT MEDENT ([facility] ) INJECTION ANES OTHER PERIPHERAL NERVE/BRANCH 0 12:00:00 AM EDT MEDENT ([facility] ) Inj, Anesth Agent, Trigeminal 01/30/2020 12:00:00 AM E DT MEDENT ([facility] ) Injection For Nerve Block, Greater Occipital Nerve 01/30/2020 12:00:00 AM EDT MEDENT ([facility] ) INJECTION ANES OTHER PERIPHERAL NERVE/BRANCH 0 12:00:00 AM EDT MEDENT ([facility] ) Medication: Zofran ODT Tab 4mg (Ondansetron) 0 12:00:00 AM EDT eCW1 ([facility]) Needle electromyography, each extremity, with related paraspinal areas, when performed, done with nerve conduction, amplitude and latency/velocity study; complete, five or more muscles studied, innervated by three or more nerves or four or more spinal levels (list separately in addition to the code for primary procedure). 12/26/2019 12:00:00 AM EDT MEDEN T ([facility] ) Needle electromyography, each extremity, with related paraspinal areas, when performed, done with nerve conduction, amplitude and latency/velocity study; complete, five or more muscles studied, innervated by three or more nerves or four or more spinal levels (list separately in addition to the code for primary procedure). 12/26/2019 12:00:00 AM EDT MEDEN T ([facility] ) Nerve Conduction 11-12 Studies 12/26/2019 12:00:00 AM EDT MEDENT ([facility] ) Inj, Anesth Agent, Trigeminal 12/24/2019 12:00:00 AM E DT MEDENT ([facility] ) Injection For Nerve Block, Greater Occipital Nerve 12/24/2019 12:00:00 AM EDT MEDENT ([facility] ) INJECTION ANES OTHER PERIPHERAL NERVE/BRANCH 0 12:00:00 AM EDT MEDENT ([facility] ) Inj, Anesth Agent, Trigeminal 11/13/2019 12:00:00 AM E DT MEDENT ([facility] ) Injection For Nerve Block, Greater Occipital Nerve 11/13/2019 12:00:00 AM EDT MEDENT ([facility] ) INJECTION ANES OTHER PERIPHERAL NERVE/BRANCH 0 12:00:00 AM EDT MEDENT ([facility] ) Inj, Anesth Agent, Trigeminal 10/09/2019 12:00:[address] MEDENT ([facility] ) Injection For Nerve Block, Greater Occipital Nerve 10/09/2019 12:00:00 AM EST MEDENT ([facility] ) INJECTION ANES OTHER PERIPHERAL NERVE/BRANCH 0 12:00:00 AM EST MEDENT ([facility] ) Inj, Anesth Agent, Trigeminal 09/07/2019 12:00:[address] MEDENT ([facility] ) Injection For Nerve Block, Greater Occipital Nerve 09/07/2019 12:00:00 AM EST MEDENT ([facility] ) INJECTION ANES OTHER PERIPHERAL NERVE/BRANCH 0 12:00:00 AM EST MEDENT ([facility] ) Measurement Post Voiding Residual Urine By Ultrasound,Non-Im aging 09/05/2019 12:00:00 AM EST MEDENT ([facility]) Inj, Anesth Agent, Trigeminal 07/10/2019 12:00:[address] MEDENT ([facility] ) Injection For Nerve Block, Greater Occipital Nerve 07/10/2019 12:00:00 AM EST MEDENT ([facility] ) INJECTION ANES OTHER PERIPHERAL NERVE/BRANCH 9 12:00:00 AM EST MEDENT ([facility] ) Results ID Date Data Source [id number] 04/09/2020 12:18:00 PM EDT MEDENT ([facility]) Name Value Range Interpretation Code Description Data Carolyn rce(s) Supporting Document(s) Color of Urine Laboratory test result MEDENT ([facility]) Spec [place] [facility] pH of Urine by Test strip 5 MEDE NT ([facility]) Appearance of Urine Laboratory test result MEDENT ([facility]) Protein [Presence] in Urine by Test strip Laboratory test result MEDENT ([facility]) Nitrate [Presence] in Urine Laboratory test result MEDENT ([facility]) Leukocytes Laboratory test result MEDENT ([facility]) Inhouse Glucose Laboratory test result MEDENT ([facility]) Urobilinogen Laboratory test result MEDENT ([facility]) Ketones [Presence] in Urine by Test strip Laboratory test result MEDENT ([facility]) Bilirubin.total [Presence] in Urine by Test strip Laboratory test res ult MEDENT ([facility]) Blood type and Indirect antibody screen panel - Blood Laboratory test result MEDENT ([facility]) ID Date Data Source [id number] 09/05/2019 09:16:00 AM EST MEDENT ([facility]) Name Value Range Interpretation Code Description Data Carolyn rce(s) Supporting Document(s) Spec [place] 1.015 MEDENT ([facility]) Color of Urine dark MEDENT ([facility]) Appearance of Urine cloudy MEDENT ([facility]) Nitrate [Presence] in Urine - ME DENT ([facility]) pH of Urine by Test strip 8 MEDE NT ([facility]) Leukocytes - MEDENT ([facility]) Urobilinogen normal MEDENT ([facility]) Protein [Presence] in Urine by Test strip - MEDENT ([facility]) Inhouse Glucose normal MEDENT ([facility]) Ketones [Presence] in Urine by Test strip - MEDENT ([facility]) Blood type and Indirect antibody screen panel - Blood - MEDENT ([facility]) Bilirubin.total [Presence] in Urine by Test strip - MEDENT ([facility]) Procedure Social History Code Duration Value Status Description Data Source(s ) Smoking 04/09/2020 12:00:00 AM EDT Never Smoked Cigarettes com pleted Never Smoked Cigarettes MEDENT ([facility]) Smoking 01/11/2020 12:00:00 AM EDT Never Smoker completed Never S cheryle eCW1 ([facility]) Vital Signs ID Date Data Source UNK Name Value Range Interpretation Code Description Data Source(s) Respiratory rate 20 /min 20 /min MEDENT ( [facility]) Heart rate 68 /min 68 /min MEDENT ([facility]) Diastolic blood pressure 100 mm[Hg] 100 mm[Hg] MEDENT ([facility]) Systolic blood pressure 130 mm[Hg] 130 mm[Hg] M EDENT ([facility]) Oxygen saturation in Arterial blood by Pulse oximetry 97 % 97 % MEDENT ([facility]) Respiratory rate 22 /min 22 /min MEDENT ( [facility]) Heart rate 70 /min 70 /min MEDENT ([facility]) Diastolic blood pressure 74 mm[Hg] 74 mm[Hg] MEDENT ([facility]) Systolic blood pressure 111 mm[Hg] 111 mm[Hg] M EDENT ([facility]) Body weight 116.575 kg 116.575 kg [facility]ENT ([facility]) Body mass index (BMI) [Ratio] 45.5 kg/m2 45.5 k g/m2 MEDENT ([facility]) Heart rate 87 /min 87 /min [facility] ([facility]) Diastolic blood pressure 93 mm[Hg] 93 mm[Hg] MEDENT ([facility]) Systolic blood pressure 138 mm[Hg] 138 mm[Hg] M EDENT ([facility]) Body weight 257.00 [lb_av] 257.00 [lb_av] MEDEN T ([facility]) Temp 97.5 Body height 63 [in_i] 63 [in_i] MEDENT ([facility]) 5'3" Diastolic blood pressure 83 mm[Hg] 83 mm[Hg] eCW1 ([facility]) Systolic blood pressure 136 mm[Hg] 136 mm[Hg] e CW1 ([facility]) Body temperature 98.9 [degF] 98.9 [degF] eCW1 ( [facility]) Respiratory rate 18 /min 18 /min eCW1 ([facility]) Heart rate 68 /min 68 /min eCW1 ([facility]) Body mass index (BMI) [Ratio] 51.75 kg/m2 51.75 kg/m2 eCW1 ([facility]) Body height 60 [in_i] 60 [in_i] eCW1 ([facility]) Body weight 265 [lb_av] 265 [lb_av] eCW1 ([facility]) Respiratory rate 16 /min 16 /min MEDENT ( [facility]) Heart rate 76 /min 76 /min MEDENT ([facility] ) Diastolic blood pressure 80 mm[Hg] 80 mm[Hg] MEDENT ([facility] Systolic blood pressure 110 mm[Hg] 110 mm[Hg] M EDENT ([facility]) Body weight 122.472 kg 122.472 kg MEDENT ([facility]) Body weight 270.00 [lb_av] 270.00 [lb_av] MEDEN T ([facility]) Oxygen saturation in Arterial blood by Pulse oximetry 97 % 97 % MEDENT ([facility]) Respiratory rate 16 /min 16 /min MEDENT ( [facility]) Heart rate 71 /min 71 /min MEDENT ([facility]) Diastolic blood pressure 85 mm[Hg] 85 mm[Hg] MEDENT ([facility]) Systolic blood pressure 123 mm[Hg] 123 mm[Hg] M EDENT ([facility]) Body weight 120.204 kg 120.204 kg MEDENT ([facility]) Body weight 265.00 [lb_av] 265.00 [lb_av] MEDEN T ([facility]) Oxygen saturation in Arterial blood by Pulse oximetry 97 % 97 % MEDENT ([facility]) Respiratory rate 16 /min 16 /min MEDENT ( [facility]) Heart rate 69 /min 69 /min MEDENT ([facility]) Diastolic blood pressure 85 mm[Hg] 85 mm[Hg] MEDENT ([facility]) Systolic blood pressure 123 mm[Hg] 123 mm[Hg] M EDENT ([facility]) Diastolic blood pressure 100 mm[Hg] 100 mm[Hg] eCW1 ([facility]) Systolic blood pressure 145 mm[Hg] 145 mm[Hg] e CW1 ([facility]) Body temperature [degF] eCW1 ([facility]) Respiratory rate 16 /min 16 /min eCW1 ([facility]) Heart rate 69 /min 69 /min eCW1 ([facility]) Body mass index (BMI) [Ratio] 51.75 kg/m2 51.75 kg/m2 eCW1 ([facility]) Body height 60 [in_us] 60 [in_us] eCW1 ([facility]) Body weight Measured 265 [lb_av] 265 [lb_av] eC W1 ([facility]) Patient Treatment Plan of Care Planned Activity Planned Date Details Description Data Source (s) Alisha MOSS 4 MG 01/11/2020 12:00:00 AM EDT eCW1 ([facility]) Triamcinolone Acetonide 1 MG/ML Topical Cream 06/29/2019 12:00:00 A M EST eCW1 ([facility])
[2020-08-26] MEDS ORDERED: ACETAMINOPHEN 325 MG TAB PO ONE (11:45)
[2020-08-26] MEDS ORDERED: ZONI100C17 PO (12:36)
[2020-08-26] MEDS ORDERED: RELP40TA PO (12:36)
[2020-08-26] MEDS ORDERED: MONT10TA10 PO (12:36)
[2020-08-26] MEDS ORDERED: ATOR40TA75 PO (12:36)
[2020-08-26] MEDS ORDERED: MORINGA PO (12:36)
[2020-08-26] MEDS ORDERED: PREG100CA PO (12:36)
[2020-08-26] MEDS ORDERED: MAGN400T2 PO (12:36)
[2020-08-26] MEDS ORDERED: AMPH1CAP16 PO (12:36)
[2020-08-26] MEDS ORDERED: ESCI10TA16 PO (12:36)
[2020-08-26] MEDS ORDERED: VITMTA PO (12:36)
[2020-08-26] MEDS ORDERED: CLON0.5T2 PO (12:36)
[2020-08-26] MEDS ORDERED: ARIP1TAB PO (12:36)
[2020-08-26] MEDS ORDERED: GINK40TA PO (12:36)
[2020-08-26] MEDS ORDERED: ADDE1TAB14 PO (12:36)
[2020-08-26] MEDS ORDERED: DULO60CA35 PO (12:36)
[2020-08-26] MEDS ORDERED: BOTO200I INJ (12:36)
[2020-08-26] MEDS ORDERED: CELE1CAP4 PO (12:36)
[2020-08-26] MEDS ORDERED: LOSA100T8 PO (12:36)
[2020-08-26] MEDS ORDERED: SYNT25TA PO (12:36)
[2020-08-26] MEDS ORDERED: CETI10TA4 PO (12:36)
[2020-08-26] MEDS ORDERED: TURM500C PO (12:36)
--- OUTSIDE RECORDS SUMMARY | 2020-08-26 12:52 | CCD ---
Author Author [facility] Organization [facility] Address Unknown Phone Unavailable Care Team Providers Care Social Services Analyst Name Role Phone Marlen Trujillo MD Unavailable [...] Unavailable Marlen Trujillo MD Unavailable Unavailable Marlen Truijllo MD Unavailable Unavailable Marlen Trujillo MD Unavailable Unavailable Marlen Trujillo MD Unavailable Unavailable Marlen Trujillo MD Unavailable Unavailable Marlen Trujlilo MD Unavailable Unavailable Marlen Trujillo MD Unavailable [...] is protected by Article 27-F of the [facility] Public Health law. If you continue you may have access to information: Regarding HIV / AIDS; Provided by facilities licensed or operated by the [facility] Office of Mental Health; or Provided by the [facility] Office for People With Developmental Disabilities. If such information is present, then the following [facility] mandated warning applies: This information has [...] law may result in a fine or fdc sentence or both. A general authorization for the release of medical or other information is NOT sufficient authorization for further disc losure. Allergies and Adverse Reactions Type Description Substance Reaction Status Data Source(s ) No Known Drug Allergies No Known Drug Allergies [facility] Family History Family Member Name Family Member Gender Family Member Status Date o f Status Description Data Source(s) Unknown Male Problem MEDENT ([facility]) Unknown Unknown Problem MEDENT ([facility] ) Unknown Male Problem MEDENT ([facility]) Encounters Encounter Providers Location Date Indications Data Source(s ) Outpatient Attender: Corie HILL Main office [place] 06/18/2020 07:00:00 AM EST MEDENT ([facility]) Outpatient Attender: Corie HILL Main office - [place] 05/14/2020 02:00:00 PM EDT MEDENT ([facility]) Outpatient Attender: BRENAD HEALY MD 04/09/20 11:11:00 AM EDT - 04/09/2020 11:11:00 AM EDT [facility] Outpatient Attender: Jesse Trujillo MD Main Office 03/25/2020 10:00:00 AM EDT MEDENT ([facility]) Outpatient Attender: Corie HILL Main office - [place] 01/28/2020 11:15:00 AM EDT MEDENT ([facility]) Outpatient [address] [facility] [place] [address] 01/11/2020 12:00:00 AM EDT [facility]CW1 [facility] [address] [facility] [place] [address] 12/10/2019 12:00:00 AM EDT [facility]CW1 [facility]) Outpatient Attender: Corie HILL Main office - [facility] 10/25/2019 09:00:00 AM EDT MEDENT ([facility]) Outpatient 09/18/2019 08:24:00 AM EST [facility] Outpatient Attender: BRENDA HEALY MD 09/05/19 08:36:00 AM EST - 09/05/2019 08:36:00 AM EST [facility] Outpatient Attender: Chioma Griffiths MS, RPA-C Family P jenntice 09/05/2019 08:00:00 AM EST MEDENT ([facility]) Outpatient 09/04/2019 12:18:00 PM EST [facility] Outpatient 08/14/2019 12:00:00 AM EST [facility] [place] [address] 06/29/2019 12:00:00 AM EST eCW1 ([facility]) Immunizations Vaccine Date Status Description Data Source(s) INFLUENZA VIRUS VACCINE QUADRIVALENT 2020-21 (6 MOS AN D UP) 08/13/2020 12:00:00 AM EST completed [facility] Medications Medication Brand Name Start Date Product Form Dose Route Admi nistrative Instructions Pharmacy Instructions Status Indications Reaction Description Data Source(s) pregabalin 100 MG Oral Capsule Pregabalin 05/29/2020 12:00:00 AM EDT ORAL active MEDENT ([facility] ) Methocarbamol 750 MG Oral Tablet Methocarbamol 05/14/2020 12:00:00 AM EDT ORAL active MEDENT ([facility] ) eletriptan 40 MG Oral Tablet [Relpax] Relpax 05/08/2020 12:00:00 AM EDT ORAL active MEDENT ([facility] ) pregabalin 50 MG Oral Capsule Pregabalin 05/08/2020 12:00:00 AM EDT ORAL completed MEDENT ([facility] ) Alprazolam 0.25 MG Oral Tablet Alprazolam 05/08/2020 12:00:00 AM EDT ORAL completed MEDENT ([facility] ) Suprep Bowel Prep Kit Suprep Bowel Prep Kit 03/25/2020 12:00:00 AM EDT active MEDENT ([facility]) gabapentin 300 MG Oral Capsule Gabapentin 03/14/2020 12:00:00 AM EDT ORAL completed MEDENT ([facility] ) Zofran ODT 4 MG UNK 01/11/2020 12:00:00 AM EDT 1.0 {tablet_on_the_tongue_and_allow_to_dissolve} active Zofran ODT 4 MG eCW1 ([facility]) gabapentin 100 MG Oral Capsule Gabapentin 12/14/2019 12:00:00 AM EDT ORAL active MEDENT ([facility] ) Methocarbamol 500 MG Oral Tablet Methocarbamol 11/28/2019 12:00:00 AM EDT ORAL completed MEDENT ([facility]) Methylprednisolone 4 MG Oral Tablet [Medrol] Medrol 12:00:00 AM EDT active MEDENT ( [facility]) Triamcinolone Acetonide 1 MG/ML Topical Cream Triamcin olone Acetonide 0.1 % Triamcinolone Acetonide 0.1 % 06/29/2019 12:00:00 AM EST active 1 application to arms, trunk, legs eCW1 ([facility]) Insurance Providers Payer name Policy type / Coverage type Policy ID Covered green party ID Covered green party's relationship to valencia Policy [place] Plan Information EAST HUMANA [id number] HUMANA EAST REG O [id number] S [id number] [employer] CO UNAVAILABLE 01 UNAVAILABLE NO FAULT [id number] SP [id number] U [id number] NO FAULT [id number] SP [id number] EAST [employer] - O/P [id number] 19 [id number] [employer] - PHYSICIAN [id number] 19 [id number] East Referrals Commercial [id number] Self [id number] East Referrals Commercial [id number] Self [id number] East [employer] Commercial [id number] Family Dependent [id number] [employer]AST [employer] - PHYSICIAN CO UNAVAILABLE 01 UNAVAILABLE East Referrals Commercial [id number] Self [id number] East [employer] Commercial [id number] Family Dependent [id number] East Referrals Commercial [id number] Self [id number] East [employer] Commercial [id number] Family Dependent [id number] [place] [employer] [id number] 01 [id number] East Referrals Commercial [id number] Self [id number] [facility] (2018) Health Maintenance Organization (HMO) [id number] Family Dependent [id number] [facility] Commercial [id number] Family Dependent [id number] ANSI-Not a Secondary Insurance [id number] ANSI-Not a Secondary Insurance [id number] ANSI-Not a Secondary Insurance [id number] [facility] [id number] 2 [id number] [facility] [id number] Problems, Conditions, and Diagnoses Code Display Name Description Problem Type Effective Dates Data Source(s) 32814671 Obstructive sleep apnea syndrome Obstructive sle ep apnea syndrome Problem 05/15/2020 12:00:00 AM EDT MEDENT ([facility] 77708582 Visual disturbance Visual disturbance Problem 03/2020 12:00:00 AM EDT MEDENT ([facility] ) 241439922 Low back pain Low back pain Problem 05/15/2020 12:00:00 AM EDT MEDENT ([facility] ) 14057793 Neck pain Neck pain Problem 05/15/2020 12:00:00 AM ED T MEDENT ([facility] ) [id number] Fibromyalgia Fibromyalgia Problem 05/15/2020 12:00:00 A M EDT MEDENT ([facility] ) 92253125 Cervico-occipital neuralgia Cervico-occipital neuralgi a Problem 05/15/2020 12:00:00 AM EDT MEDENT ([facility] ) [id number] Chronic intractable migraine without aur a Chronic intractable migraine without aura Problem 05/15/2020 12:00:00 AM EDT MEDENT ([facility] ) [id number] Screening for malignant neoplasm of colo n Screening for malignant neoplasm of colon Problem 03/25/2020 12:00:00 AM EDT MEDENT ([facility]) M79.7 [id number] Fibromyalgia Problem 01/11/2020 12:00:00 AM EDT eCW1 ([facility]) F41.9 62830013 Anxiety Problem 01/11/2020 12:00:00 AM ED T eCW1 ([facility]) R39.15 51285166 Urinary urgency Problem 01/11/2020 12:00:00 AM EDT eCW1 ([facility]) K21.9 [id number] Gastroesophageal ref lux disease, esophagitis presence not specified Problem 01/11/2020 12:00:00 AM EDT eCW1 [facility] R73.03 [id number] Pre-diabetes Problem 01/11/2020 12:00:00 AM EDT eCW1 ([facility]) G89.29 32923268 Other chronic pain Problem 01/11/2020 12:00: 00 AM EDT eCW1 ([facility]) F32.9 45379161 Depression, unspecified depression type P roblem 01/11/2020 12:00:00 AM EDT eCW1 ([facility]) M54.5 [id number] Low back pain Problem 01/11/2020 12:00:00 AM EDT eCW1 ([facility]) Z91.09 402157855 Environmental allergies Problem 01/11/2020 1 2:00:00 AM EDT eCW1 ([facility]) G47.30 04003135 Sleep apnea, unspecified type Problem 01/11/2020 12:00:00 AM EDT eCW1 ([facility]) E03.9 27975381 Hypothyroidism, unspecified type Problem 01/11/2020 12:00:00 AM EDT eCW1 ([facility]) I10 18709541 Hypertension, unspecified type Problem 01/10 12:00:00 AM EDT eCW1 ([facility]) E78.00 43082533 High cholesterol Problem 01/11/2020 12:00:00 AM EDT eCW1 ([facility]) 41365816 Urge incontinence of urine Urge incontinence of urine Problem 09/05/2019 12:00:00 AM EST MEDENT ([facility]) Surgeries/Procedures Procedure Description Date Indications Data Source(s) Inj, Anesth Agent, Trigeminal 07/15/2020 12:00:[address] MEDENT ([facility] ) Injection For Nerve Block, Greater Occipital Nerve 07/15/2020 12:00:00 AM EST MEDENT ([facility] ) INJECTION ANES OTHER PERIPHERAL NERVE/BRANCH 0 12:00:00 AM EST MEDENT ([facility] ) MRI BRAIN BRAIN STEM W/O CONTRAST MATERIAL 05/10/2020 12:00:00 AM EDT MEDENT ([facility] MRI BRAIN BRAIN STEM W/O CONTRAST MATERIAL 05/10/2020 12:00:00 AM EDT MEDENT ([facility] ) Inj, Anesth Agent, Trigeminal 04/28/2020 12:00:00 AM E DT MEDENT ([facility] ) Injection For Nerve Block, Greater Occipital Nerve 04/28/2020 12:00:00 AM EDT MEDENT ([facility] ) INJECTION ANES OTHER PERIPHERAL NERVE/BRANCH 0 12:00:00 AM EDT MEDENT ([facility] ) Inj, Anesth Agent, Trigeminal 03/24/2020 12:00:00 AM E DT MEDENT ([facility] ) Injection For Nerve Block, Greater Occipital Nerve 03/24/2020 12:00:00 AM EDT MEDENT ([facility] ) INJECTION ANES OTHER PERIPHERAL NERVE/BRANCH 0 12:00:00 AM EDT MEDENT ([facility] ) Inj, Anesth Agent, Trigeminal 01/30/2020 12:00:00 AM E DT MEDENT ([facility] ) Injection For Nerve Block, Greater Occipital Nerve 01/30/2020 12:00:00 AM EDT MEDENT ([facility] ) INJECTION ANES OTHER PERIPHERAL NERVE/BRANCH 0 12:00:00 AM EDT MEDENT ([facility] ) Medication: Zofran ODT Tab 4mg (Ondansetron) 0 12:00:00 AM EDT eCW1 ([facility]) Needle electromyography, each extremity, with related paraspinal areas, when performed, done with nerve conduction, amplitude and latency/velocity study; complete, five or more muscles studied, innervated by three or more nerves or four or more spinal levels (list separately in addition to the code for primary procedure). 12/26/2019 12:00:00 AM EDT MEDEN T ([facility] ) Needle electromyography, each extremity, with related paraspinal areas, when performed, done with nerve conduction, amplitude and latency/velocity study; complete, five or more muscles studied, innervated by three or more nerves or four or more spinal levels (list separately in addition to the code for primary procedure). 12/26/2019 12:00:00 AM EDT MEDEN T ([facility] ) Nerve Conduction 11-12 Studies 12/26/2019 12:00:00 AM EDT MEDENT ([facility] ) Inj, Anesth Agent, Trigeminal 12/24/2019 12:00:00 AM E DT MEDENT ([facility] ) Injection For Nerve Block, Greater Occipital Nerve 12/24/2019 12:00:00 AM EDT MEDENT ([facility] ) INJECTION ANES OTHER PERIPHERAL NERVE/BRANCH 0 12:00:00 AM EDT MEDENT ([facility] ) Inj, Anesth Agent, Trigeminal 11/13/2019 12:00:00 AM E DT MEDENT ([facility] ) Injection For Nerve Block, Greater Occipital Nerve 11/13/2019 12:00:00 AM EDT MEDENT ([facility] ) INJECTION ANES OTHER PERIPHERAL NERVE/BRANCH 0 12:00:00 AM EDT MEDENT ([facility] ) Inj, Anesth Agent, Trigeminal 10/09/2019 12:00:[address] MEDENT ([facility] ) Injection For Nerve Block, Greater Occipital Nerve 10/09/2019 12:00:00 AM EST MEDENT ([facility] ) INJECTION ANES OTHER PERIPHERAL NERVE/BRANCH 0 12:00:00 AM EST MEDENT ([facility] ) Inj, Anesth Agent, Trigeminal 09/07/2019 12:00:[address] MEDENT ([facility] ) Injection For Nerve Block, Greater Occipital Nerve 09/07/2019 12:00:00 AM EST MEDENT ([facility] ) INJECTION ANES OTHER PERIPHERAL NERVE/BRANCH 0 12:00:00 AM EST MEDENT ([facility] ) Measurement Post Voiding Residual Urine By Ultrasound,Non-Im aging 09/05/2019 12:00:00 AM EST MEDENT ([facility]) Inj, Anesth Agent, Trigeminal 07/10/2019 12:00:[address] MEDENT ([facility] ) Injection For Nerve Block, Greater Occipital Nerve 07/10/2019 12:00:00 AM EST MEDENT ([facility] ) INJECTION ANES OTHER PERIPHERAL NERVE/BRANCH 9 12:00:00 AM EST MEDENT ([facility] ) Results ID Date Data Source [id number] 04/09/2020 12:18:00 PM EDT MEDENT ([facility]) Name Value Range Interpretation Code Description Data Carolyn rce(s) Supporting Document(s) Color of Urine Laboratory test result MED[facility] ([facility]) Spec [place] [facility] pH of Urine by Test strip 5 MEDE NT ([facility]) Appearance of Urine Laboratory test result MEDENT ([facility]) Protein [Presence] in Urine by Test strip Laboratory test result MEDENT ([facility]) Nitrate [Presence] in Urine Laboratory test result MEDENT ([facility]) Leukocytes Laboratory test result MEDENT ([facility]) Inhouse Glucose Laboratory test result MEDENT ([facility]) Urobilinogen Laboratory test result MEDENT ([facility]) Ketones [Presence] in Urine by Test strip Laboratory test result MEDENT ([facility]) Bilirubin.total [Presence] in Urine by Test strip Laboratory test res ult MEDENT ([facility]) Blood type and Indirect antibody screen panel - Blood Laboratory test result MEDENT ([facility]) ID Date Data Source [id number] 09/05/2019 09:16:00 AM EST MEDENT ([facility]) Name Value Range Interpretation Code Description Data Carolyn rce(s) Supporting Document(s) Spec [place] 1.015 MEDENT ([facility]) Color of Urine dark MEDENT ([facility]) Appearance of Urine cloudy MEDENT ([facility]) Nitrate [Presence] in Urine - ME DENT ([facility]) pH of Urine by Test strip 8 MEDE NT ([facility]) Leukocytes - MEDENT ([facility]) Urobilinogen normal MEDENT ([facility]) Protein [Presence] in Urine by Test strip - MEDENT ([facility]) Inhouse Glucose normal MEDENT ([facility]) Ketones [Presence] in Urine by Test strip - MEDENT ([facility]) Blood type and Indirect antibody screen panel - Blood - MEDENT ([facility]) Bilirubin.total [Presence] in Urine by Test strip - MEDENT ([facility]) Procedure Social History Code Duration Value Status Description Data Source(s ) Smoking 04/09/2020 12:00:00 AM EDT Never Smoked Cigarettes com pleted Never Smoked Cigarettes MEDENT ([facility]) Smoking 01/11/2020 12:00:00 AM EDT Never Smoker completed Never S cheryle eCW1 ([facility]) Vital Signs ID Date Data Source UNK Name Value Range Interpretation Code Description Data Source(s) Respiratory rate 20 /min 20 /min MEDENT ( [facility]) Heart rate 68 /min 68 /min MEDENT ([facility]) Diastolic blood pressure 100 mm[Hg] 100 mm[Hg] MEDENT ([facility]) Systolic blood pressure 130 mm[Hg] 130 mm[Hg] M EDENT ([facility]) Oxygen saturation in Arterial blood by Pulse oximetry 97 % 97 % MEDENT ([facility]) Respiratory rate 22 /min 22 /min MEDENT ( [facility]) Heart rate 70 /min 70 /min MEDENT ([facility]) Diastolic blood pressure 74 mm[Hg] 74 mm[Hg] MEDENT ([facility]) Systolic blood pressure 111 mm[Hg] 111 mm[Hg] M EDENT ([facility]) Body weight 116.575 kg 116.575 kg MEDENT ([facility]) Body mass index (BMI) [Ratio] 45.5 kg/m2 45.5 k g/m2 MEDENT ([facility]) Heart rate 87 /min 87 /min [facility] ([facility]) Diastolic blood pressure 93 mm[Hg] 93 mm[Hg] MEDENT ([facility]) Systolic blood pressure 138 mm[Hg] 138 mm[Hg] M EDENT ([facility]) Body weight 257.00 [lb_av] 257.00 [lb_av] MEDEN T ([facility]) Temp 97.5 Body height 63 [in_i] 63 [in_i] MEDENT ([facility]) 5'3" Diastolic blood pressure 83 mm[Hg] 83 mm[Hg] eCW1 ([facility]) Systolic blood pressure 136 mm[Hg] 136 mm[Hg] e CW1 ([facility]) Body temperature 98.9 [degF] 98.9 [degF] eCW1 ( [facility]) Respiratory rate 18 /min 18 /min eCW1 ([facility]) Heart rate 68 /min 68 /min eCW1 ([facility]) Body mass index (BMI) [Ratio] 51.75 kg/m2 51.75 kg/m2 eCW1 ([facility]) Body height 60 [in_i] 60 [in_i] eCW1 ([facility] Body weight 265 [lb_av] 265 [lb_av] eCW1 ([facility]) Respiratory rate 16 /min 16 /min MEDENT ( [facility]) Heart rate 76 /min 76 /min MEDENT ([facility] Diastolic blood pressure 80 mm[Hg] 80 mm[Hg] MEDENT ([facility] Systolic blood pressure 110 mm[Hg] 110 mm[Hg] M EDENT ([facility]) Body weight 122.472 kg 122.472 kg MEDENT ([facility]) Body weight 270.00 [lb_av] 270.00 [lb_av] MEDEN T ([facility]) Oxygen saturation in Arterial blood by Pulse oximetry 97 % 97 % MEDENT ([facility]) Respiratory rate 16 /min 16 /min MEDENT ( [facility]) Heart rate 71 /min 71 /min MEDENT ([facility]) Diastolic blood pressure 85 mm[Hg] 85 mm[Hg] MEDENT ([facility]) Systolic blood pressure 123 mm[Hg] 123 mm[Hg] M EDENT ([facility]) Body weight 120.204 kg 120.204 kg MEDENT ([facility]) Body weight 265.00 [lb_av] 265.00 [lb_av] MEDEN T ([facility]) Oxygen saturation in Arterial blood by Pulse oximetry 97 % 97 % MEDENT ([facility]) Respiratory rate 16 /min 16 /min MEDENT ( [facility]) Heart rate 69 /min 69 /min MEDENT ([facility]) Diastolic blood pressure 85 mm[Hg] 85 mm[Hg] MEDENT ([facility]) Systolic blood pressure 123 mm[Hg] 123 mm[Hg] M EDENT ([facility]) Diastolic blood pressure 100 mm[Hg] 100 mm[Hg] eCW1 ([facility]) Systolic blood pressure 145 mm[Hg] 145 mm[Hg] e CW1 ([facility]) Body temperature [degF] eCW1 ([facility]) Respiratory rate 16 /min 16 /min eCW1 ([facility]) Heart rate 69 /min 69 /min eCW1 ([facility]) Body mass index (BMI) [Ratio] 51.75 kg/m2 51.75 kg/m2 eCW1 ([facility]) Body height 60 [in_us] 60 [in_us] eCW1 ([facility]) Body weight Measured 265 [lb_av] 265 [lb_av] eC W1 ([facility]) Patient Treatment Plan of Care Planned Activity Planned Date Details Description Data Source (s) Alisha MOSS 4 MG 01/11/2020 12:00:00 AM EDT eCW1 ([facility]) Triamcinolone Acetonide 1 MG/ML Topical Cream 06/29/2019 12:00:00 A M EST eCW1 ([facility])
[2020-08-26] MEDS: dexameTHASONE 4 MG/ML 1ML VIAL (J1100 PER 1MG) IV SCH (13:08)
[2020-08-26] MEDS: ASPIRIN 81 MG ENTERIC TAB PO SCH (13:08)
[2020-08-26] MEDS ORDERED: SODIUM CHLORIDE 0.9% INJ 10 ML SYR IV ONE (14:30)
[2020-08-26 14:41] VITALS: BP 97/56
[2020-08-26 15:00] VITALS: O2SAT 92
[2020-08-26 15:57] VITALS: BP 101/58
[2020-08-26] MEDS ORDERED: GLUCAGON INJ 1MG VIAL SC PRN (17:00)
[2020-08-26] MEDS ORDERED: DEXTROSE 50% 50 ML SYRINGE IV PRN (17:00)
[2020-08-26] MEDS ORDERED: REMDESIVIR 200 MG in NS 250 ML IV ONE (17:00)
[2020-08-26] MEDS ORDERED: GLUCOSE 4GM CHEW TABLET PO PRN (17:00)
[2020-08-26 17:17] LABS: APPEARANCE, URINE HAZY (CLEAR); BACTERIA, URINE AUTO 2+ (NEGATIVE); BILIRUBIN, URINE AUTO NEGATIVE (NEGATIVE); BLOOD, URINE BLOOD NEGATIVE (NEGATIVE); COLOR, URINE AMBER (YELLOW); GLUCOSE, URINE (UA) AUTO NEGATIVE (NEGATIVE); KETONE, URINE AUTO NEGATIVE (NEGATIVE); LEUKOCYTE ESTERASE, URINE AUTO TRACE (NEGATIVE); MUCUS, URINE SMALL (NEGATIVE); NITRITE, URINE AUTO POSITIVE (NEGATIVE); PROTEIN, URINE AUTO NEGATIVE (NEGATIVE); RBC, URINE AUTO 2 /HPF (0-3); SPECIFIC GRAVITY URINE AUTO 1.014 (1.002-1.035); SQUAMOUS EPITHELIAL CELL UR AU 1 /HPF (0-6); WBC, URINE AUTO 11 /HPF (0-3)
[2020-08-26] MEDS: HumaLOG INSULIN (NovoLOG) PER UNIT SC SCH ×2 (18:27→20:19)
--- NOTE | 2020-08-26 18:57 | HPEPDOC ---
[facility] Medical History & Physical Date of Admission Aug 26, 2020 Date of Service: Aug 26, 2020 History and Physical CHIEF COMPLAINT: muscle aches and fever for 2wks HISTORY OF PRESENT ILLNESS: 50 y/o F w h/o fibromyalgia, intractable migraines,obesity bmi 46.2, depression, anxiety, chronic low back pain, dyslipidemia, htn, Esophagitis, GERD, MARICEL, hypothyroidism, environment allergies, urinary urgency was covid positive in 05/29/2020 not hospitalized presents w 2 wk h/o myalgias and on and off fevers 101.7 treated with tylenol and ibuprofen at home. For the last 2 days, she noticed a dry cough, sob w MERRILL after walking 5 to 10 feet, dizziness, anosmia,slight loss of taste, generalized headache and one loose diarrhea episode today w/o n/v/abdpain, prompting her to come to the ER for evaluation. o2sat on room air was 88-91%, cxr: b/l infiltrates. Hospitalist was called to admit for covid 19 viral pneumonia with hypoxia. PAST MEDICAL HISTORY: fibromyalgia, intractable migraines, depression, anxiety, chronic low back pain, dyslipidemia, htn, Esophagitis, GERD, MARICEL, hypothyroidism, environment allergies, urinary urgency was covid positive in 05/29/2020 not hospitalized PAST SURGICAL HISTORY: , back surgery, cholecystectomy,vaginal sling SOCIAL HISTORY: <1ppd x 9mos, quit 2011, denies drug or etoh abuse FAMILY HISTORY: mother age 54 lung cancer, smoker. mother alive 73y/o, smoker, emphysema. ALLERGIES: Please see below. REVIEW OF SYSTEMS: 12pt rOS neg aside from positive findings on HPI HOME MEDICATIONS: Please see below. PHYSICAL EXAMINATION: VITAL SIGNS: see below GENERAL APPEARANCE: ill appearing. no respiratory distress or use of resp acc mm. no pallor or icterus HEENT: no jvd. moist mm no cervical LAD, thyromegaly , or carotid bruits CARDIOVASCULAR: s1s2 rrr LUNGS: diminished b/l crackles ABDOMEN: obese soft nt nd +bs x 4quadrants EXTREMITIES-c/c/e LABORATORY DATA: See below. IMAGING: see below MICROBIOLOGY: Please see below. ASSESSMENT: 50 y/o F w h/o fibromyalgia, intractable migraines, depression, anxiety, chronic low back pain, dyslipidemia, htn, Esophagitis, GERD, MARICEL, hypothyroidism, environment allergies, urinary urgency was covid positive in 05/29/2020 not hospitalized presents w 2 wk h/o myalgias and on and off fevers 101.7 treated with tylenol and ibuprofen at home. For the last 2 days, she noticed a dry cough, sob w MERRILL after walking 5 to 10 feet, dizziness, anosmia,slight loss of taste, generalized headache and one loose diarrhea episode today w/o n/v/abdpain, prompting her to come to the ER for evaluation. o2sat on room air was 88-91%, cxr: b/l infiltrates. Hospitalist was called to admit for covid 19 viral pneumonia with hypoxia. covid-19 pneumonia -on iv remdesevir, iv decadron, asa, lovenox -q12hr inflammatory marker monitoring -supportive care to keep o2 sat >90% with supplemental oxygen -check gi panel, but diarrhea most likely due to coronavirus infection -c/o nasal dryness with o2-prn saline spray -prn inhalers intractable migraines -c/o headache -tylenol prn. -maxalt -resume zonisamide depression, anxiety -resumed home meds chronic low back pain -resumed home meds dyslipidemia -resumed home meds htn -resumed home meds Esophagitis, GERD -resumed ppi MARICEL -outpt sleep study for cpap -supplemental o2 -continuous pulse ox hypothyroidism -on synthroid morbid obesity bmi 46.2 code: full code dvt prophylaxis: lovenox. disposition: 3-4 days pending clinical improvement Vital Signs Vital Signs Date Time Temp Pulse Resp B/P (MAP) Pulse Ox O2 Delivery O2 Flow Rate FiO2 08/26/20 15:57 66 19 101/58 (72) 94 Nasal Cannula 1.0 08/26/20 14:41 97.1 Laboratory Data Labs 24H Laboratory Tests 2 08/26/20 09:57: Immature Granulocyte % (Auto) 1.5, Neutrophils (%) (Auto) 68.0H, Lymphocytes (%) (Auto) 24.6, Monocytes (%) (Auto) 4.0, Eosinophils (%) (Auto) 1.6, Basophils (%) (Auto) 0.3, Neutrophils # (Auto) 4.6, Lymphocytes # (Auto) 1.7, Monocytes # (Auto) 0.3, Eosinophils # (Auto) 0.1, Basophils # (Auto) 0.0, Nucleated Red Blood Cells % (auto) 0.0, Prothrombin Time 12.1, Prothromb Time International Ratio 0.88, Activated Partial Thromboplast Time 33.0, D-Dimer, Quantitative 1573.30H, Anion Gap 9, Glomerular Filtration Rate > 60.0, Lactic Acid Level 2.4*H, Calcium Level 8.7, Total Bilirubin 0.5, Aspartate Amino Transf (AST/SGOT) 54H, Alanine Aminotransferase (ALT/SGPT) 49, Alkaline Phosphatase 130H, Total Protein 6.9, Albumin 2.8L, Albumin/Globulin Ratio 0.7L 08/26/20 11:57: Ferritin 336H, Lactate Dehydrogenase 474H, Troponin I < 0.02, C-Reactive Prote in, Quantitative 12.00H 08/26/20 14:22: Lactic Acid Followup at 4 Hours 1.7 08/26/20 16:56: Bedside Glucose (Misc Panel) 228H 08/26/20 17:05: Urine Color MASON, Urine Appearance HAZY, Urine pH 7.0, Urine Specific [place] 1.014, Urine Protein NEGATIVE, Urine Glucose (Auto)(UA) NEGATIVE, Urine Ketones (Auto) NEGATIVE, Urine Blood NEGATIVE, Urine Nitrite POSITIVE, Urine Bilirubin NEGATIVE, Urine Urobilinogen 2.0H, Urine Leukocyte Esterase (Auto) TRACEH, Urine WBC (Auto) 11H, Urine RBC (Auto) 2, Urine Hyaline Casts (Auto) 0, Urine Bacteria (Auto) 2+H, Urine Squamous Epithelial Cells 1, Urine Mucus (Auto) SMALL, Urine Sperm (Auto) CBC/BMP Laboratory Tests 08/26/20 09:57 Microbiology Microbiology 08/26/20 Respiratory Virus Panel (PCR) ([facility]) - Final, Complete SARS-CoV-2 (COVID 19) Home Medications Scheduled Aripiprazole (Aripiprazole) 10 Mg Tablet, 10 MG PO QHS Atorvastatin Calcium (Atorvastatin Calcium) 40 Mg Tablet, 40 MG PO QHS Bifidobacterium Infantis (Align) 4 Mg Capsule, 4 MG PO DAILY Celecoxib (Celebrex) 200 Mg Capsule, 200 MG PO DAILY Cetirizine HCl (Cetirizine HCl) 10 Mg Tablet, 10 MG PO DAILY Dextroamphetamine/Amphetamine (Dextroamp-Amphet ER 20 mg Cap) 20 Mg Cap.er.24h, 20 MG PO QAM Dextroamphetamine/Amphetamine (Adderall 5 mg Tablet) 5 Mg Tablet, 10 MG PO DAILY TAKES AT 1400 Duloxetine HCl (Duloxetine HCl) 60 Mg Capsule.dr, 60 MG PO DAILY Escitalopram Oxalate (Escitalopram Oxalate) 10 Mg Tablet, 10 MG PO QHS Ginkgo Biloba (Ginkgo Biloba) 40 Mg Tablet, 40 MG PO DAILY Levothyroxine Sodium (Synthroid) 25 Mcg Tablet, 25 MCG PO QAM Losartan/Hydrochlorothiazide (Losartan-Hctz 100-12.5 mg Tab) 1 Each Tablet, 1 TAB PO DAILY Magnesium Oxide (Magnesium Oxide) 400 Mg Tablet, 400 MG PO DAILY Metformin HCl (Metformin HCl ER) 500 Mg Tab.er.24h, 1,000 MG PO QHS Montelukast Sodium (Montelukast Sodium) 10 Mg Tablet, 10 MG PO QHS Multivitamins (Thera M Plus Tablet) 1 Each Tablet, 1 TAB PO DAILY [place]-3 Fatty Acids/Fish Oil (Fish Oil 1,000 mg Capsule) 1 Each Capsule, 1,000 MG PO BID Onabotulinumtoxina (Botox) 200 Unit Vial, 200 UNIT INJ Q3M Pantoprazole Sodium (Pantoprazole Sodium) 40 Mg Tablet.dr, 40 MG PO DAILY Pregabalin (Lyrica) 100 Mg Capsule, 100 MG PO TID Turmeric/Turmeric Root Extract (Turmeric 500 mg Capsule) 1 Each Capsule, 500 MG PO QHS Zonisamide (Zonisamide) 100 Mg Capsule, 300 MG PO QHS [[place]oringa] , 1 TAB PO QHS Scheduled PRN Clonazepam (Clonazepam) 0.5 Mg Tablet, 0.5 MG PO Q8H PRN for ANXIETY Eletriptan Hydrobromide (Relpax) 40 Mg Tablet, 40 MG PO for MIGRAINE Allergies Coded Allergies: No Known Allergies (Unverified , 04/19/19) A-FIB/CHADSVASC A-FIB History Current/History of A-Fib/PAF?: No Current PO Anticoag Therapy: No Age/Risk Factor Scoring CHADSVASC: CHADSVASC Response (Comments) Value Age Risk Factor Age < 65 years old 0 Gender Risk Factor Female 1 Hx of CHF No 0 Hx of HTN Yes 1 Hx of Stroke/TIA/or VTE No 0 Hx of Diabetes No 0 Hx of Vascular Disease No 0 Total 2 Treatment Treatment ordered: NONE ADONAY SPARKS MD Aug 26, 2020 18:55
[2020-08-26] MEDS ORDERED: SODIUM CHLORIDE NASAL 0.65% SPRAY BTL (OCEAN) PRN (19:00)
[2020-08-26] MEDS ORDERED: ACETAMINOPHEN TAB 650MG DOSE (2X325MG) PO PRN (19:00)
[2020-08-26] MEDS ORDERED: ALBUTEROL 90 MCG/ACT 8GM HFA INHALER INH PRN (19:00)
[2020-08-26] MEDS ORDERED: RIZATRIPTAN BENZOATE 10 MG TAB PO ONE (19:00)
[2020-08-26] MEDS: clonazePAM 0.5 MG TAB PO PRN (19:12)
[2020-08-26] MEDS: ARIPiprazole 10 MG TAB PO SCH (19:59)
[2020-08-26] MEDS: ZONISAMIDE 100 MG CAP (ZONEGRAN) PO SCH (19:59)
[2020-08-26] MEDS: PREGABALIN 100 MG CAP (LYRICA) PO SCH (20:00)
[2020-08-26] MEDS: ATORVASTATIN 20 MG TAB PO SCH (20:00)
[2020-08-26] MEDS: ENOXAPARIN 40MG/0.4ML SYRINGE (J1650 PER 10MG) SC SCH (20:00)
[2020-08-26] MEDS: ESCITALOPRAM OXALATE 10 MG TAB (LEXAPRO) PO SCH (20:00)
[2020-08-26] MEDS: MONTELUKAST 10 MG TAB PO SCH (20:00)
[2020-08-26] MEDS: SODIUM CHLORIDE NASAL 0.65% SPRAY BTL (OCEAN) SCH (20:01)
[2020-08-26 20:11] VITALS: BP 168/84
[2020-08-26] MEDS ORDERED: ONDANSETRON 4 MG ORAL DISINTEGRATING TAB SL PRN (20:45)
[2020-08-26] MEDS ORDERED: metFORMIN XR 500MG TAB *GLUCOPHAGE XR PO SCH (21:00)
[2020-08-27] VITALS (8 sets, daily range): BP systolic 94–118; BP diastolic 49–55; O2SAT 91–95
[2020-08-27] MEDS: LEVOTHYROXINE 25MCG TABLET (0.025MG) PO SCH (05:58)
[2020-08-27 06:32] LABS: HEMATOCRIT 37.9 % (36.0-47.0); HEMOGLOBIN 12.3 g/dl (12.0-15.5); MEAN CORPUSCULAR HEMOGLOBIN 29.5 pg (27.0-33.0); MEAN CORPUSCULAR HGB CONC 32.5 g/dl (32.0-36.5); MEAN CORPUSCULAR VOLUME 90.9 fl (80.0-96.0); PLATELET COUNT, AUTOMATED 262 10^3/uL (150-450); RED BLOOD COUNT 4.17 10^6/uL (4.00-5.40)
[2020-08-27 06:53] LABS: ALBUMIN 2.6 GM/DL (3.2-5.2); ALT/SGPT 41 U/L (12-78); BILIRUBIN,DIRECT 0.2 MG/DL (0.0-0.2); BILIRUBIN,TOTAL 0.4 MG/DL (0.2-1.0); BLOOD UREA NITROGEN 15 MG/DL (7-18); CALCIUM LEVEL 8.5 MG/DL (8.5-10.1); CARBON DIOXIDE LEVEL 26 MEQ/L (21-32); CHLORIDE LEVEL 106 MEQ/L (98-107); CREATININE FOR GFR 0.74 MG/DL (0.55-1.30); GLOMERULAR FILTRATION RATE > 60.0 (>51); GLUCOSE, FASTING 148 MG/DL (70-100); MAGNESIUM LEVEL 2.1 MG/DL (1.8-2.4); POTASSIUM SERUM 3.9 MEQ/L (3.5-5.1); SODIUM LEVEL 140 MEQ/L (136-145); TOTAL PROTEIN 6.9 GM/DL (6.4-8.2)
[2020-08-27 08:19] LABS: ANISOCYTOSIS 1+; ATYPICAL LYMPH 5 % (0-5); LYMPHOCYTES 21 % (16-44); MONOCYTES 9 % (0-5); MYELOCYTES 1 % (0-0); NEUTROPHILS 62 % (28-66); PLATELET ESTIMATE NORMAL (NORMAL)
[2020-08-27] MEDS: ALBUTEROL 90 MCG/ACT 8GM HFA INHALER INH SCH ×4 (08:20→20:13)
[2020-08-27 08:56] LABS: ERYTHROCYTE SEDIMENTATION RATE 85 mm/hr (0-30)
[2020-08-27] MEDS: AMPHETAMINE/DEXTROAMPHETAMINE 5 MG *ER* CAPSULE (ADDERALL XR) PO SCH (09:03)
[2020-08-27] MEDS: ENOXAPARIN 40MG/0.4ML SYRINGE (J1650 PER 10MG) SC SCH ×2 (09:04→21:52)
[2020-08-27] MEDS: dexameTHASONE 4 MG/ML 1ML VIAL (J1100 PER 1MG) IV SCH (09:04)
[2020-08-27] MEDS: HumaLOG INSULIN (NovoLOG) PER UNIT SC SCH ×4 (09:04→20:52)
[2020-08-27] MEDS: MULTIVITAMINS/MINERALS THERAP 1 TAB PO SCH (09:05)
[2020-08-27] MEDS: PANTOPRAZOLE 40MG TAB (PROTONIX) PO SCH (09:05)
[2020-08-27] MEDS: PREGABALIN 100 MG CAP (LYRICA) PO SCH ×3 (09:05→21:50)
[2020-08-27] MEDS: ASPIRIN 81 MG ENTERIC TAB PO SCH (09:05)
[2020-08-27] MEDS: CETIRIZINE (ZyrTEC) 10 MG TAB PO SCH (09:05)
[2020-08-27] MEDS: MAGNESIUM OXIDE 400MG TAB (MAG-OX) PO SCH (09:05)
[2020-08-27] MEDS: CelecoXIB (CeleBREX) 100 MG CAP PO SCH (09:05)
[2020-08-27] MEDS: SODIUM CHLORIDE NASAL 0.65% SPRAY BTL (OCEAN) SCH ×3 (09:06→21:51)
[2020-08-27] MEDS ORDERED: ISOVUE-370 76% 100ML VIAL As Ordered ONE (11:07)
[2020-08-27] MEDS ORDERED: FUROSEMIDE 20 MG TAB PO ONE (13:15)
[2020-08-27] MEDS ORDERED: AZITHROMYCIN INJ 500 MG, VIAL MATE ADAPTER 1 EACH in D5W 250 ML IV SCH (13:30)
[2020-08-27] MEDS ORDERED: SODIUM CHLORIDE 0.9% INJ 10 ML SYR IV SCH (13:30)
[2020-08-27] MEDS: clonazePAM 0.5 MG TAB PO PRN (13:51)
--- NOTE | 2020-08-27 13:51 | REP ---
INDICATION: Reinfection of covid-19. Last dose metformin was yesturday. COMPARISON: Comparison is made with chest x-ray from 26 [address] study from May 30, 2020.. TECHNIQUE: Contrast dose: 75 ML of Isovue [address] technique: Helical scanning is acquired and overlapping 1.5 mm and contiguous 3 mm axial images are reformatted. In addition, maximum intensity projection and multiplanar re-formation images are generated in sagittal and coronal imaging projections. FINDINGS: There is good opacification in the pulmonary arterial tree. There is no evidence of vessel cut off or filling defect to suggest pulmonary embolus. Homogeneous opacity is seen in the thoracic aorta. There is no evidence of aneurysm or dissection. Lung window settings demonstrate extensive bilateral, predominantly peripheral ill-defined alveolar infiltrates and ground-glass opacities throughout the lung laboy bilaterally. These involve bilateral upper and lower lobes and the right middle lobe. There consistent with advanced and extensive viral pneumonia. There is no evidence of pleural or pericardial effusion. No hilar adenopathy is seen. There is a subcarinal lymph node with short axis dimension of 1.2 cm which appears slightly prominent. No other evidence of adenopathy is seen. In the upper abdomen, there is moderate degree of diffuse fatty infiltration of the liver. The liver appears enlarged. The spleen is normal in size and homogeneous. Normal adrenal glands are seen. There is a tiny accessory splenule high in the left upper quadrant. No bony destructive lesion is seen. IMPRESSION: No CT evidence of pulmonary embolus. Extensive patchy predominantly peripheral infiltrates throughout the lung laboy bilaterally consistent with advanced viral pneumonia. <Electronically signed by Kni Pruitt > 08/27/20 [id number]
[2020-08-27] MEDS ORDERED: ADDERALL 5 MG TAB PO SCH (14:00)
[2020-08-27] MEDS ORDERED: cefTRIAXone SOD 1 GM in D5W MINI-BAG PLUS 50 ML IV SCH (14:30)
--- NOTE | 2020-08-27 16:13 | IPNPDOC ---
Text Note Date of Service The patient was seen on 08/27/20. NOTE Subjective: Patient seen at bedside and examined today. And reports to be having dry cough, and mild shortness of breath and is requiring about 4 L of nasal cannula and saturating and lower 90s. Patient is very tired and fatigued Physical examination: General appearance: That and oriented 3, laying in bed, ill-appearing. HEENT: No JVD, no cervical lymphadenopathy. CVS: S1-S2 heard, no murmur heard. Respiratory: Rhonchi heard bilaterally, diminished breath sounds. Abdomen: Obese, soft, no tenderness Extremities: bilateral pedal edema noted Imaging Chest x-ray, 08/26/20 reported as: Diffuse bilateral airspace disease consistent with multifocal pneumonia/COVID-19 pulmonary disease. ASSESSMENT: 50 y/o F w h/o fibromyalgia, intractable migraines, depression, anxiety, chronic low back pain, dyslipidemia, htn, Esophagitis, GERD, MARICEL, hypothyroidism, environment allergies, urinary urgency was covid positive in 05/29/2020 not hospitalized presents w 2 wk h/o myalgias and on and off fevers 101.7 treated with tylenol and ibuprofen at home. For the last 2 days, she noticed a dry cough, sob w MERRILL after walking 5 to 10 feet, dizziness, anosmia,slight loss of taste, generalized headache and one loose diarrhea episode today w/o n/v/abdpain, prompting her to come to the ER for evaluation. o2sat on room air was 88-91%, cxr: b/l infiltrates. Hospitalist was called to admit for covid 19 viral pneumonia with hypoxia. Covid 19 pneumonia: - This is the reinfection/secondary infection of Covid for this patient. - Given that it is a reinfection will get a CTA to look for acute and chronic processes in the lungs. - Will continue IV Remdesevir, IV dexamethasone, anticoagulation with Lovenox - Today would be her day 2 remdesevir, IV dexamethasone. - Will start azithromycin and ceftriaxone as well [D1] - Will give her a dose of oral IV Lasix 20 MG Diabetes mellitus: - On insulin sliding scale -Consistent carbohydrate diet - Will hold metformin for now Morbid obesity: - Complicating care. Migraines: -Continue home medication Depression/anxiety: - Will continue home medication - Clonazepam when necessary, escitalopram 10 MG Chronic back pain: - Will continue home medication Dyslipidemia: - Continue statin Hypertension: - Hold hypertensive medication for now Esophagitis/GERD: - Will continue pantoprazole MARICEL: - Will get an echocardiogram. - She might need outpatient sleep study for CPAP Hypothyroidism: - Continue Synthyroid DVT prophylaxis: - On Lovenox 40 MG for now. VS,Fishbone, I+O VS, Fishbone, I+O Laboratory Tests 08/27/20 05:29 Vital Signs Date Time Temp Pulse Resp B/P (MAP) Pulse Ox O2 Delivery O2 Flow Rate FiO2 08/27/20 12:02 97.8 61 21 102/52 (69) 91 Nasal Cannula 4.0 I&O- Last 24 Hours up to 6 AM 08/27/20 06:00 Intake Total 610 ml Output Total 700 ml Balance -90 ml GME ATTESTATION GME ATTESTATION My faculty preceptor for this patient encounter was physically present during the encounter and was fully available. All aspects of the patient interview, examination, medical decision making process, and medical care plan development were reviewed and approved by the faculty preceptor. The faculty preceptor is aware and concurs with the plan as stated in the body of this note and will attest to such by his/her cosignature. ATTENDING NOTE I, Salvador Swift MD, have independently examined this patient and performed my own physical exam, as well as reviewed the documentation and edited where necessary. I have discussed in detail with the resident / student the findings and plan of treatment as documented by the resident / student and edited their note. I agree with their findings and treatment plan and have edited their documentation. Horacio Mathew MD Aug 27, 2020 16:13 SALVADOR SWIFT MD Aug 28, 2020 13:15
[2020-08-27] MEDS ORDERED: REMDESIVIR 100 MG in NS 250 ML IV SCH (17:00)
[2020-08-27] MEDS: MONTELUKAST 10 MG TAB PO SCH (21:50)
[2020-08-27] MEDS: ATORVASTATIN 20 MG TAB PO SCH (21:50)
[2020-08-27] MEDS: ARIPiprazole 10 MG TAB PO SCH (21:50)
[2020-08-27] MEDS: ESCITALOPRAM OXALATE 10 MG TAB (LEXAPRO) PO SCH (21:50)
[2020-08-27] MEDS: ZONISAMIDE 100 MG CAP (ZONEGRAN) PO SCH (21:51)
[2020-08-28 00:59] VITALS: BP 89/53
[2020-08-28 04:00] VITALS: BP 97/55
[2020-08-28] MEDS: LEVOTHYROXINE 25MCG TABLET (0.025MG) PO SCH (06:31)
[2020-08-28 07:36] VITALS: BP 112/57
[2020-08-28] MEDS: ALBUTEROL 90 MCG/ACT 8GM HFA INHALER INH SCH ×3 (07:48→16:00)
[2020-08-28 07:49] LABS: BASO % 0.2 % (0.0-1.0); EOS % 0.3 % (0.0-3.0); HEMATOCRIT 34.9 % (36.0-47.0); HEMOGLOBIN 11.5 g/dl (12.0-15.5); LYMPH # 1.4 10^3/uL (1.5-5.0); LYMPH % 23.7 % (24.0-44.0); MEAN CORPUSCULAR HEMOGLOBIN 29.9 pg (27.0-33.0); MEAN CORPUSCULAR VOLUME 90.9 fl (80.0-96.0); MONO # 0.3 10^3/uL (0.0-0.8); MONO % 5.1 % (0.0-5.0); NEUTROPHILS # 4.1 10^3/uL (1.5-8.5); NEUTROPHILS % 68.5 % (36.0-66.0); PLATELET COUNT, AUTOMATED 260 10^3/uL (150-450); RED BLOOD COUNT 3.84 10^6/uL (4.00-5.40)
[2020-08-28 07:59] LABS: INR 1.02; PROTHROMBIN TIME 13.6 SECONDS (12.5-14.3)
[2020-08-28 08:00] LABS: PARTIAL THROMBOPLASTIN TIME 33.1 SECONDS (24.2-38.5)
[2020-08-28 08:22] LABS: ALBUMIN 2.5 GM/DL (3.2-5.2); ALT/SGPT 36 U/L (12-78); BILIRUBIN,DIRECT 0.1 MG/DL (0.0-0.2); BILIRUBIN,TOTAL 0.2 MG/DL (0.2-1.0); BLOOD UREA NITROGEN 22 MG/DL (7-18); CALCIUM LEVEL 8.5 MG/DL (8.5-10.1); CARBON DIOXIDE LEVEL 27 MEQ/L (21-32); CHLORIDE LEVEL 106 MEQ/L (98-107); CPK CREATINE PHOSPHOKINASE 79 U/L (26-192); CREATININE FOR GFR 0.78 MG/DL (0.55-1.30); FERRITIN 264 NG/ML (8-252); GLOMERULAR FILTRATION RATE > 60.0 (>51); GLUCOSE, FASTING 142 MG/DL (70-100); LDH LACTATE DEHYDROGENASE 399 U/L (84-246); MAGNESIUM LEVEL 2.1 MG/DL (1.8-2.4); NT-PRO BNP 729 PG/ML (<125); POTASSIUM SERUM 3.9 MEQ/L (3.5-5.1); SODIUM LEVEL 142 MEQ/L (136-145); TOTAL PROTEIN 6.4 GM/DL (6.4-8.2)
[2020-08-28 08:23] LABS: TROPONIN I < 0.02 NG/ML (< 0.10)
[2020-08-28] MEDS: HumaLOG INSULIN (NovoLOG) PER UNIT SC SCH ×2 (08:51→12:31)
[2020-08-28] MEDS: ENOXAPARIN 40MG/0.4ML SYRINGE (J1650 PER 10MG) SC SCH (08:51)
[2020-08-28] MEDS: dexameTHASONE 4 MG/ML 1ML VIAL (J1100 PER 1MG) IV SCH (08:51)
[2020-08-28] MEDS: ASPIRIN 81 MG ENTERIC TAB PO SCH (08:51)
[2020-08-28] MEDS: AMPHETAMINE/DEXTROAMPHETAMINE 5 MG *ER* CAPSULE (ADDERALL XR) PO SCH (08:52)
[2020-08-28] MEDS: CelecoXIB (CeleBREX) 100 MG CAP PO SCH (08:54)
[2020-08-28] MEDS: MULTIVITAMINS/MINERALS THERAP 1 TAB PO SCH (08:55)
[2020-08-28] MEDS: CETIRIZINE (ZyrTEC) 10 MG TAB PO SCH (08:55)
[2020-08-28] MEDS: MAGNESIUM OXIDE 400MG TAB (MAG-OX) PO SCH (08:55)
[2020-08-28] MEDS: PREGABALIN 100 MG CAP (LYRICA) PO SCH (08:55)
[2020-08-28] MEDS: PANTOPRAZOLE 40MG TAB (PROTONIX) PO SCH (08:55)
[2020-08-28] MEDS: SODIUM CHLORIDE NASAL 0.65% SPRAY BTL (OCEAN) SCH (08:56)
[2020-08-28] MEDS ORDERED: VITA500C24 PO (11:37)
[2020-08-28] MEDS ORDERED: VENTAER INH (11:37)
[2020-08-28] MEDS ORDERED: AUGM875T28 PO (11:37)
[2020-08-28] MEDS ORDERED: ZINC1TAB2 PO (11:37)
[2020-08-28] MEDS ORDERED: DEXA2TA PO (11:37)
[2020-08-28 11:47] VITALS: O2SAT 94
[2020-08-28 12:33] VITALS: BP 120/68
--- NOTE | 2020-08-28 13:14 | DS.PDOC ---
Discharge Summary General Date of Admission Aug 26, 2020 at 12:28 Date of Discharge 08/28/20 Discharge Summary Chief complaints. Shortness of breath, fatigue Final diagnosis Covid 19 reinfection Acute hypoxic respiratory failure Covid 19, interstitial pneumonia History of present illness and Hospital course 50 y/o F w h/o fibromyalgia, intractable migraines, depression, anxiety, chronic low back pain, dyslipidemia, htn, Esophagitis, GERD, MARICEL, hypothyroidism, environment allergies, urinary urgency was covid positive in 05/29/2020 not hospitalized presents w 2 wk h/o myalgias and on and off fevers 101.7 treated with tylenol and ibuprofen at home. For the last 2 days, she noticed a dry cough, sob w MERRILL after walking 5 to 10 feet, dizziness, anosmia,slight loss of taste, generalized headache and one loose diarrhea episode today w/o n/v/abdpain, prompting her to come to the ER for evaluation. o2sat on room air was 88-91%, cxr: b/l infiltrates. Given that it is a reinfection will get a CTA to look for acute and chronic processes in the lungs., But it did not show any pulmonary embolism. She remained stable on 3-4 L since she was admitted to the hospital. She was given to eczematous on 6 mg IV along with that, the patient was put on supplemental oxygen as well. The patient has been doing much better. Her infirmity markers have been stable. . She was also started on Remdesevir and she got 3 doses, but with regards to the reinfection there is no clarity on the use of this drug. She was seen by physical therapy as well and she did well. We did a 6 minute walk test where she desaturated in upper 80s and for that reason, she qualified for home oxygen. Given her extent of lung involvement, which seems to be both acute and chronic. She would require very close pulmonary follow-up and probably would require 4-6 week off oxygen therapy and eventually a repeat CAT scan with PFTs. She will be given 10 day course of dexamethasone along with Augmentin. We will also give her albuterol inhaler and cough suppressants. She has been advised to use 2-3 L at rest and 4 L on activity. She also has been advised to come to the ER if her symptoms worsen. Given the risk of nosocomial infections and her being stable for the last 48 hours. Unstable oxygen and afebrile. All the options were given to her and she is okay with the discharge. In my only been maximal benefit has been opting from this inpatient stay. Physical examination: General appearance: That and oriented 3, laying in bed, ill-appearing. HEENT: No JVD, no cervical lymphadenopathy. CVS: S1-S2 heard, no murmur heard. Respiratory: Mild Rhonchi heard bilaterally, diminished breath sounds. Abdomen: Obese, soft, no tenderness Extremities: bilateral pedal edema noted Medictations. As per discharge reconciliation medication list, dexamethasone, albuterol, Augmentin has been added Activity as tolerated Diet. 2 g sodium diet Follow-up appointments. PCP in 1 week. Pulmonary in 4 weeks for possible PFTs Condition on discharge. Patient is medically optimized for discharge Discharge disposition: Home Total time spent on this discharge including coordination of care, review of chart documentation and actual patient contact is around 35 minutes Vital Signs/I&Os Vital Signs Date Time Temp Pulse Resp B/P (MAP) Pulse Ox O2 Delivery O2 Flow Rate FiO2 08/28/20 11:47 94 Nasal Cannula 1.0 08/28/20 07:36 97.9 54 21 112/57 (75) I&O- Last 24 Hours up to 6 AM 08/28/20 06:00 Intake Total 1750 ml Output Total 400 ml Balance 1350 ml Laboratory Data Labs 24H Laboratory Tests 2 08/27/20 17:06: Bedside Glucose (Misc Panel) 224H 08/27/20 20:26: Bedside Glucose (Misc Panel) 219H 08/28/20 07:09: Immature Granulocyte % (Auto) 2.2, Neutrophils (%) (Auto) 68.5H, Lymphocytes (%) (Auto) 23.7L, Monocytes (%) (Auto) 5.1H, Eosinophils (%) (Auto) 0.3, Basophils (%) (Auto) 0.2, Neutrophils # (Auto) 4.1, Lymphocytes # (Auto) 1.4L, Monocytes # (Auto) 0.3, Eosinophils # (Auto) 0.0, Basophils # (Auto) 0.0, Nucleated Red Blood Cells % (auto) 0.0, Prothrombin Time 13.6, Prothromb Time International Ratio 1.02, Activated Partial Thromboplast Time 33.1, Fibrinogen 641H, Anion Gap 9, Glomerular Filtration Rate > 60.0, Calcium Level 8.5, Magnesium Level 2.1, Ferritin 264H, Total Bilirubin 0.2, Direct Bilirubin 0.1, Aspartate Amino Transf (AST/SGOT) 36, Alanine Aminotransferase (ALT/SGPT) 36, Alkaline Phosphatase 96, Lactate Dehydrogenase 399H, Total Creatine Kinase 79, Troponin I < 0.02, TJ-Qjq-C-Type Natriuretic Peptide 729H, Total Protein 6.4, Albumin 2.5L, Albumin/Globulin Ratio 0.6L, Procalcitonin 0.06 08/28/20 12:09: Bedside Glucose (Misc Panel) 244H CBC/BMP Laboratory Tests 08/28/20 07:09 FSBS Laboratory Tests Test 08/27/20 17:06 08/27/20 20:26 08/28/20 12:09 Range/Units Bedside Glucose (Misc Panel) 224 219 244 70-105 MG/DL Microbiology Microbiology 08/26/20 Respiratory Virus Panel (PCR) ([facility]) - Final, Complete SARS-CoV-2 (COVID 19) 08/26/20 Gastrointestinal Tract Panel (PCR) - Final, Complete Enteroaggregative E.coli Discharge Medications Scheduled Amoxicillin/Potassium Clav (Augmentin 875-125 Tablet) 1 Each Tablet, 875 MG PO BID Aripiprazole (Aripiprazole) 10 Mg Tablet, 10 MG PO QHS, (Reported) Ascorbic Acid (Vitamin C) 500 Mg Capsule, 1 CAP PO DAILY Atorvastatin Calcium (Atorvastatin Calcium) 40 Mg Tablet, 40 MG PO QHS, (Reported) Bifidobacterium Infantis (Align) 4 Mg Capsule, 4 MG PO DAILY, (Reported) Celecoxib (Celebrex) 200 Mg Capsule, 200 MG PO DAILY, (Reported) Cetirizine HCl (Cetirizine HCl) 10 Mg Tablet, 10 MG PO DAILY, (Reported) Dexamethasone (Dexamethasone) 2 Mg Tablet, 2 MG PO DAILY Dextroamphetamine/Amphetamine (Dextroamp-Amphet ER 20 mg Cap) 20 Mg Cap.er.24h, 20 MG PO QAM, (Reported) Dextroamphetamine/Amphetamine (Adderall 5 mg Tablet) 5 Mg Tablet, 10 MG PO DAILY, (Reported) TAKES AT 1400 Duloxetine HCl (Duloxetine HCl) 60 Mg Capsule.dr, 60 MG PO DAILY, (Reported) Escitalopram Oxalate (Escitalopram Oxalate) 10 Mg Tablet, 10 MG PO QHS, (Reported) Ginkgo Biloba (Ginkgo Biloba) 40 Mg Tablet, 40 MG PO DAILY, (Reported) Levothyroxine Sodium (Synthroid) 25 Mcg Tablet, 25 MCG PO QAM, (Reported) Losartan/Hydrochlorothiazide (Losartan-Hctz 100-12.5 mg Tab) 1 Each Tablet, 1 TAB PO DAILY, (Reported) Magnesium Oxide (Magnesium Oxide) 400 Mg Tablet, 400 MG PO DAILY, (Reported) Metformin HCl (Metformin HCl ER) 500 Mg Tab.er.24h, 1,000 MG PO QHS, (Reported) Montelukast Sodium (Montelukast Sodium) 10 Mg Tablet, 10 MG PO QHS, (Reported) Multivitamins (Thera M Plus Tablet) 1 Each Tablet, 1 TAB PO DAILY, (Reported) [place]-3 Fatty Acids/Fish Oil (Fish Oil 1,000 mg Capsule) 1 Each Capsule, 1,000 MG PO BID, (Reported) Onabotulinumtoxina (Botox) 200 Unit Vial, 200 UNIT INJ Q3M, (Reported) Pantoprazole Sodium (Pantoprazole Sodium) 40 Mg Tablet.dr, 40 MG PO DAILY, (Reported) Pregabalin (Lyrica) 100 Mg Capsule, 100 MG PO TID, (Reported) Turmeric/Turmeric Root Extract (Turmeric 500 mg Capsule) 1 Each Capsule, 500 MG PO QHS, (Reported) Zinc (Zinc) 50 Mg Tablet, 1 TAB PO DAILY Zonisamide (Zonisamide) 100 Mg Capsule, 300 MG PO QHS, (Reported) [[place]] , 1 TAB PO QHS, (Reported) Scheduled PRN Albuterol Sulfate (Ventolin Hfa) 18 Gm Hfa.aer.ad, 2 PUFF INH Q4-6HP PRN for wheezing Clonazepam (Clonazepam) 0.5 Mg Tablet, 0.5 MG PO Q8H PRN for ANXIETY, (Reported) Eletriptan Hydrobromide (Relpax) 40 Mg Tablet, 40 MG PO for MIGRAINE, (Reported) Allergies Coded Allergies: No Known Allergies (Unverified , 04/19/19) SARATH SWIFT MD Aug 28, 2020 13:14
--- NOTE | 2020-08-29 11:46 | ECHO ---
DATE OF PROCEDURE: 08/27/2020 Age: 50 Gender: Female PATIENT LOCATION: Room 4109. REFERRING PHYSICIAN: Salvador Brady M.D. REASON FOR STUDY: Congestive heart failure. 2D MEASUREMENTS: IVS 1.1 cm LV 4.6 cm LVPW 1.1 cm LA 3.7 cm Aorta 2.9 cm IVC 1.8 cm DOPPLER MEASUREMENT Peak velocity across the aortic valve 1.4 m/s Peak velocity across the LVOT 1.1 m/s Mitral E 1.0 Mitral A 0.83 with a ratio of 1.2 Maximum tricuspid valve velocity 2.6 m/s 2D COMMENTS: 1. Normal left ventricular size, wall thickness, and normal global left ventricular systolic function. The estimated left ventricular systolic ejection fraction is 60% to 65%. 2. Normal left atrium. 3. Normal right atrium and right ventricle. 4. The atrial septum appeared to be normal without evidence of defect or shunt. 5. Normal aortic root. 6. No pericardial effusion seen. 7. The aortic valve, mitral valve, and tricuspid valve appear to be normal. The pulmonic valve and proximal pulmonary artery branches also appear to be normal. 8. The inferior vena cava was normal in size, central venous pressure is most likely normal. DOPPLER: It detects trace to mild mitral regurgitation, mild tricuspid regurgitation. The calculated pulmonary artery systolic pressure varies between 30 to 40 mmHg. Assessment of the left ventricular diastolic function appeared to be normal. IMPRESSION: 1. Normal global left ventricular systolic and diastolic function. 2. Trace to mild mitral regurgitation. 3. Mild tricuspid regurgitation with mild pulmonary hypertension. MTDD
[2020-08-29 14:09] LABS: BODY FLUID CULTURE Not indicated. (.); LEGIONELLA ANTIGEN URINE Negative (Negative); ORGANISM ID Not indicated. (.); SPECIMEN SOURCE Urine (.); URINE STREP PNEUMONIAE ANTIGEN Negative (Negative)
[2020-08-29 15:08] LABS: MYCOPLASMA PNEUMONIAE IgG 358 U/mL (0-99); MYCOPLASMA PNEUMONIAE IgM <770 U/mL (0-769)
== END 2020-08-28 16:36 | disposition home or self-care (01) | DRG 177 ==
LOC: M ED 09:11 → M ED INP 12:28 → M 4MAIN 14:40
PROVIDERS: ADMIT General Practice; ATTEND Internal Medicine
DX: U07.1 COVID-19 (principal); J96.01 Acute respiratory failure with hypoxia; J12.89 Other viral pneumonia; Z68.42 Body mass index [BMI] 45.0-49.9, adult; M79.7 Fibromyalgia; G43.919 Migraine, unspecified, intractable, without status migrainosus; F32.9 Major depressive disorder, single episode, unspecified; F41.9 Anxiety disorder, unspecified; M54.5 Low back pain; G47.33 Obstructive sleep apnea (adult) (pediatric); E03.9 Hypothyroidism, unspecified; K21.9 Gastro-esophageal reflux disease without esophagitis; Z79.899 Other long term (current) drug therapy; E66.01 Morbid (severe) obesity due to excess calories; E78.5 Hyperlipidemia, unspecified

== ENCOUNTER → 2020-11-05 | Outpatient (CLI) | payer OTHER ==
[~2020-11-05] MED LIST changes: +ADDE1TAB14 PO; +ALIG4CAP PO; +AMPH1CAP16 PO; +ARIP1TAB; +ARIP1TAB PO; +ATOR40TA75 PO; +AUGM875T28 PO; +BOTO200I INJ; +CETI-24 PO; +CETI10TA4 PO; +CLON0.5T2 PO; +DEXA2TA PO; +DULO1CAP6 PO; +DULO60CA35 PO; +ESCI10TA16; +ESCI10TA16 PO; +FISH1000 PO; +GINK40TA PO; +MAGN400T2 PO; +MAGN400T3 PO; +METF-838 PO; +MONT10TA10 PO; +MORINGA PO; +PANT40TA29 PO; +PREG100CA PO; +RELP40TA PO; +TURM500C PO; +VENTAER INH; +VITA500C24 PO; +VITMTA PO; +ZINC1TAB2 PO
--- NOTE | 2020-11-05 14:56 | REPMRS ---
Patient History The patient states she had a clinical breast exam in February 2020. Family history of unknown cancer in father, unknown cancer in maternal grandmother. Took unspecified hormones for 7 years. 3D TOMOSYNTHESIS WAS PERFORMED. [facility]%. Volpara breast density b. Digital Woman Screen Mammo: November 05, 2020 - Exam #: [id number] Bilateral CC and MLO view(s) were taken. Technologist: Bruna Lindsey, Technologist Prior study comparison: August 31, 2019, bilateral digital mammo screening bilat, performed at [facility]. May 31, 2018, bilateral digital mammo screening bilat, performed at [facility]. FINDINGS: There are scattered fibroglandular densities. There has been no change in the appearance of the mammogram from the prior studies. There is a mild amount of residual fibroglandular tissue which is fairly symmetric. There is no interval development of dominant mass, architectural distortion, or clustered microcalcification suggestive of malignancy. Assessment: BI-RADS/ACR category 1 mammogram. Negative Mammogram. Recommendation Routine screening mammogram in 1 year (for women over age 40). This mammogram was interpreted with the aid of an FDA-approved computer-aided dectection system. Electronically Signed By: Hai Avery MD 11/05/20 3446
== END ==
LOC: M WHC 09:28
PROVIDERS: ATTEND Family Medicine
DX: Z12.31 Encounter for screening mammogram for malignant neoplasm of breast (principal); R92.2 Inconclusive mammogram

== ENCOUNTER → 2020-12-30 | Outpatient (CLI) | payer OTHER ==
--- NOTE | 2020-12-30 10:58 | REPVR ---
PROCEDURE INFORMATION: Exam: CT Chest Without Contrast; Diagnostic Exam date and time: 12/30/2020 10:27 AM Age: 50 years old Clinical indication: Abnormal findings; Other: Abn imaging; Additional info: Abnormal finding of lung field TECHNIQUE: Imaging protocol: Diagnostic computed tomography of the chest without contrast. 3D rendering (Not supervised by radiologist): MIP and/or 3D reconstructed images were created by the technologist. Radiation optimization: All CT scans at this facility use at least one of these dose optimization techniques: automated exposure control; mA and/or kV adjustment per patient size (includes targeted exams where dose is matched to clinical indication); or iterative reconstruction. COMPARISON: CT Chest with contrast 05/30/2020 2:53 PM FINDINGS: Lungs: Lungs are now almost clear with the bilateral extensive infiltrates. There is trace atelectasis seen involving the right base just above the hemidiaphragm. Pleural spaces: Unremarkable. No pneumothorax. No pleural effusion. Heart: Unremarkable. No cardiomegaly. No pericardial effusion. Aorta: There is an ectatic ascending aorta 35 x 37 mm. Lymph nodes: Unremarkable. No enlarged lymph nodes. Spleen: There is splenomegaly at 134 mm. Bones/joints: Unremarkable. No acute fracture. Soft tissues: Unremarkable. IMPRESSION: 1. Clearing of bilateral ground-glass infiltrates. 2. Splenomegaly. Electronically signed by: Oneil Fuentes On 12/30/2020 10:58:10 AM
== END ==
LOC: M RAD 10:13
PROVIDERS: ATTEND Physician Assistant
DX: R91.8 Other nonspecific abnormal finding of lung field (principal); R16.1 Splenomegaly, not elsewhere classified